=== PATIENT | female | born 1960 | race Caucasian/White ===

== ENCOUNTER 2017-01-13 14:36 | Observation (INO) | payer MEDICARE ==
[~2017-01-13] VITALS: Ht 160 cm; Wt 82.3 kg
--- NOTE | ~2017-01-13 | CN ---
PATIENT NAME:ANNIE PEÑA MEDICAL RECORD: [id number] : 56 LOCATION:D. D.2139 ADMIT DATE: 01/13/17 ACCOUNT: [id number] CONSULTING PHYSICIAN: PRETTY WEAVER MD REFERRING PHYSICIAN: ACE LIMA MD DATE OF CONSULTATION: 01/14/2017 ADMITTING DIAGNOSES: 1. Chest pain compatible with unstable angina. 2. Hypertension. 3. Family history of coronary artery disease. HISTORY OF PRESENT ILLNESS: Mrs. Peña presents with multiple episodes of typical anginal chest discomfort this week associated with diaphoresis, shortness of breath and nausea. The episodes have been escalating in severity. Troponin is normal. She has no history of coronary artery disease; however, she does have a family history of coronary artery disease. PHYSICAL EXAMINATION: GENERAL APPEARANCE: Well-nourished, well-developed, appears stated age. Level of distress, comfortable. PSYCHIATRIC: Mental status, alert, normal affect. Orientation, oriented to time, place and person. EYES: Lids and conjunctiva, noninjected. No discharge, no pallor. ENT: Lips, teeth, gums, normal dentition. Oropharynx, no cyanosis, no pallor. NECK: Carotid arteries, bilateral normal upstroke, no bruits, no thrills. JUGULAR VEINS: No jugular venous pressure or distention. CERVICAL LYMPH NODES: Nontender, nonenlarged. THYROID: Not enlarged. Nontender. No nodules. LUNGS: Respiratory effort, unlabored. CHEST: Normal curvature. No thoracic deformity. No chest wall tenderness. Percussion, resonant. Auscultation, clear. No wheezes, no rales, no rhonchi. CARDIOVASCULAR: Precordial exam, nondisplaced. No heaves or pericardial thrills. Rate and rhythm, regular. Heart sounds, normal S1, normal S2. No S3, no gallop, no rub. Systolic murmur, not heard. Diastolic murmur, not heard. EXTREMITIES: No cyanosis, no edema. Peripheral pulses, full and equal in all extremities, except as noted. No bruits appreciated. ABDOMEN: Soft, nondistended. Normal aorta. No bruit. Nontender. No masses. Liver, nontender, no hepatomegaly. Spleen, nontender, no splenomegaly. MUSCULOSKELETAL: No joint tenderness. No joint swelling. No erythema. NEUROLOGICAL: Normal gait, normal strength, normal tone. SKIN: Warm and dry. REVIEW OF SYSTEMS: The patient reports easy bruising but reports no swollen glands. The patient reports no fever, no night sweats, no significant weight gain, no significant weight loss. No significant exercise tolerance. The patient reports no dry eyes, no irritation, no vision change. Patient reports no difficulty hearing and no ear pain. Patient reports no frequent nose bleeds or nose and sinus problems. Patient reports on arm pain on exertion. No shortness of breath while lying down. No history of heart murmur. Patient reports no cough, no wheezing or coughing up blood. Patient reports no abdominal pain, no vomiting. Normal appetite. No diarrhea and not vomiting blood. No nausea and no constipation. Patient reports no incontinence. No difficulty urinating. No hematuria. No increased frequency. Patient reports no muscle aches. No weakness, no arthralgias, no back pain. No swelling of the CONSULT REPORT [id number] SMOKE,ANNIE CONSUELO extremities. Patient reports no abnormal mole, no jaundice, no rashes. Reports no loss of consciousness. No weakness and no numbness. No seizures, dizziness, or headaches. The patient reports no depression, no sleep disturbance, feeling safe in a relationship and no alcohol abuse. Patient reports on fatigue. Reports no runny nose or sinus pressure. No itching, no hives, and no frequent sneezing. OVERALL IMPRESSION: Unstable anginal symptomatology. We will proceed with coronary angiography. Further care depends upon findings of the angiography. TRANSINT:[id number] Voice Confirmation ID: [id number] DOCUMENT ID: [id number] PRETTY WEAVER MD CC: [id number] DICTATION DATE: 01/14/17953 INSTRUMENTATION AND CONTROLS DESIGNER: 01/14/17 1108 ADM IN [place] [id number] [place] [id number]
--- NOTE | ~2017-01-13 | HEMODYNAMI ---
PATIENT:ANNIE PEÑA MEDICAL RECORD: [id number] : 56 LOCATION:[facility] D.2139 ADMISSION DATE: 01/13/17 Generatedon:01/14/201712:39 Patient name: ANNIE PEÑA Patient #: [id number] SSN: [id number] : 1960 Date of study: 01/14/2017 Page: Of Hemodynamic Procedure Report Patient Data Patient Demographics Procedure consent was obtained First Name: ANNIE Gender: Female Last Name: MARIANA : 1960 [facility] Initial: CONSUELO Age: 56 year(s) Patient #: [id number] Race: SSN: [id number] Additional ID: [id number] Contact details Address: [address] [place] [address] State: [place] City: [facility] Zip code: [address] Past Medical History Allergies Allergen Reaction Date Comments Reported Other allergy 01/14/2017 Penicillins, Demerol, phenergan Admission Admission Data Admission Date: 01/13/2017 Admission Time: 20:16 Arrival Date: 01/13/2017 Arrival Time: 20:16 Admit Source: Other Insurance Payor: Medicare Room #: D.2139 Height (in.): 62.99 BSA: 1.85 (m2) Height (cm.): 160 BMI: 32.14 (kg/m2) Weight (lbs.): 181.38 Weight (kg.): 82.27 Lab Results Lab Result Date: 01/14/2017 Lab Result Time: 0:00 Biochemistry Name Units Result Min Max BUN mg/dl 10 --(-*--)-- 7 18 CK-MB ng/ml 0.1 --(*---)-- 0 3.6 Creatinine mg/dl 0.9 --(-*--)-- 0.6 1.3 Creatinine l 67 --(*---)-- 21 215 Kinase CBC Name Units Result Min Max Hemoglobin g/dl 14.9 --(-*--)-- 13.5 17.5 Procedure Procedure Types Cath Procedure Diagnostic Procedure [facility] w/Coronaries Miscellaneous Procedures Moderate Sedation up to 15 minutes Procedure Description Procedure Date Procedure Date: 01/14/2017 Procedure Start Time: 12:28 Procedure End Time: 12:36 Procedure Staff Name Function Paresh Wise MD Performing Physician Morenita Johnson RT Scrub Prosper Barnes RN Nurse Priya Oliveira RT Monitor Procedure Data Cath Procedure Fluoroscopy Diagnostic fluoroscopy Total fluoroscopy Time: 1.4 time: 1.4 min min Diagnostic fluoroscopy Total fluoroscopy dose: 333 dose: 333 mGy mGy Contrast Material Contrast Material Type Amount (ml) Isovue 300 40 Entry Location Entry Primary Successful Side Size Upsize Upsize Entry Closure Larry ccessful Closure Location (Fr) 1 (Fr) 2 (Fr) Remarks Device Remarks Radial Right 6 Fr Mechanical artery Short Compression Estimated blood loss: 5 ml Diagnostic catheters Device Type Used For End Catheter Placement Diagnostic Terumo Multi-vessel Optitorque 5Fr Levant 4.5 Angiography catheter Procedure Complications No complications Procedure Medications Medication Administration Route Dosage Oxygen NC 2 l/min Lidocaine 2% added to field 20 Heparin Flush Bag added to field 2 bags (1000units/500ml NS) 0.9% NaCl I.V. 100 ml/hr Radial Cocktail I.A. 1 syringe (Verapomil 2mg/Nitro 400mcg/Heparin 1500units) Versed I.V. 1 mg Fentanyl I.V. 50 mcg Versed I.V. 1 mg Fentanyl I.V. 50 mcg Hemodynamics Rest BSA: 1.85 (m2) HGB: 14.9 (g/dl) O2 Consumption: Estimated: 168.6 (ml/min) O2 Con sumption indexed: Estimated:91.14 (ml/min/m) Heart Rate: 59 (bpm) Pressure Samples Time Site Value (mmHg) Purpose Heart Use Rate(bpm) 12:33 LV 37/7,34 Snapshot 31 Snapshots Pre Cath Intra NCS Post Cath Vital Signs Time Heart Resp SPO2 NIBP Rhythm Pain Sedation Rate (ipm) (%) (mmHg) Status Level (bpm) 12:22:51 62 18 96 96/66(84) NSR 0 (11) 10(A) , No pain 12:26:53 65 15 95 103/70(85) NSR 0 (11) 10(A) , No pain 12:31:01 64 16 94 107/65(96) NSR 0 (11) 9(A) , No pain 12:35:07 81 16 94 115/69(98) NSR 0 (11) 9(A) , No pain 12:38:40 69 15 94 112/66(95) NSR 0 (11) 10(A) , No pain Medications Time Medication Route Dose Verified Delivered Reason Notes Effectiveness by by 12:23:25 Oxygen NC 2 l/min Paresh Buffie used for Frandy Barnes RN procedure 12:23:32 Lidocaine 2% added 20ml Pareshpita Yoder for local to vial Frandy Wise MD anesthetic field 12:23:40 Heparin Flush added 2 bags Paresh Yoder used for Bag to Frandy Wise MD procedure (1000units/500ml field NS) 12:23:52 0.9% NaCl I.V. 100 Pareshpita Cheng Per ml/hr Frandy Barnes RN physician 12:27:15 Versed I.V. 1 mg Paresh Cheng for sedation Frandy Barnes RN 12:27:22 Fentanyl I.V. 50 mcg Paresh Cheng for sedation Frandy Barnes RN 12:31:07 Radial Cocktail I.A. 1 Paresh Paresh for (Verapomil syringe Frandy Wise MD vasodilation 2mg/Nitro 400mcg/Heparin 1500units) 12:34:22 Versed I.V. 1 mg Pareshpita Garciaie for sedation Frandy Barnes RN 12:34:26 Fentanyl I.V. 50 mcg Paresh Cheng for sedation Frandy Barnes RN Procedure Log Time Note 10:13:28 Diagnostic Cath status Elective 10:13:32 Time tracking: Regular hours 10:13:37 Plan of Care:Hemodynamics will remain stable., Cardiac rhythm will remain stable., Comfort level will be maintained., Respiratory function will remain adequate., Patient/ family verbilizes understanding of procedure., Procedure tolerated without complication., Recovers from procedure without complications.. 10:13:47 H&P Date Dictated: 01/13/2017 Within 30 days and on chart.. 10:15:43 Lab Result : CK-MB 0.1 ng/ml 10:15:43 Lab Result : Creatinine Kinase 67 l 10:15:43 Lab Result : Hemoglobin 14.9 g/dl 10:15:43 Lab Result : BUN 10 mg/dl 10:15:43 Lab Result : Creatinine 0.9 mg/dl 10:15:57 Patient Height : 160 cm 10:16:03 Patient Weight : 82.27 kg 11:57:45 Prosper Barnes RN sent for patient. Start room use. 12:11:16 Patient received from Med II to CCL 2 Alert and oriented. Tansferred to table in Supine position. 12:11:17 Warm blankets applied, and devin hugger turned on for patient comfort. 12:11:17 Correct patient and procedure confirmed by team. 12:11:19 Signed procedure consent form obtained from patient. 12:11:20 ECG and BP/O2 sat monitors applied to patient. 12:21:47 Vital chart was started 12:21:48 Baseline sample Acquired. 12:21:59 Baseline sample Acquired. 12:22:07 Rhythm: sinus rhythm 12:22:09 Full Disclosure recording started 12:22:10 Pre-procedure instructions explained to patient. 12:22:11 Pre-op teaching completed and patient verbalized understanding. 12:22:12 Family in waiting room. 12:22:14 Patient NPO since Midnight. 12:23:25 Oxygen 2 l/min NC was administered by Prosper Barnes RN; used for procedure; 12:23:32 Lidocaine 2% 20ml vial added to field was administered by Paresh Wise MD; for local anesthetic; 12:23:34 Patient allergic to Other allergyPenicillins, Demerol, phenergan 12:23:36 Is patient on blood thinner?No 12:23:38 Patient diabetic? Yes. 12:23:39 If diabetic: On Metformin? No 12:23:40 Heparin Flush Bag (1000units/500ml NS) 2 bags added to field was administered by Paresh Wise MD; used for procedure; 12:23:46 Patient not . Patient is over age 55. 12:23:49 Previous problem with sedation/anesthesia? No ? 12:23:51 Snore? Yes 12:23:51 Sleep apnea? No 12:23:52 0.9% NaCl 100 ml/hr I.V. was administered by Prosper Barnes RN; Per physician; 12:23:53 Deviated septum? No 12:23:53 Opens mouth fully? Yes 12:23:54 Sticks out tongue? Yes 12:23:56 Airway obstruction? No ? 12:23:58 Dentures? No ? 12:24:02 Pre procedure: right dorsailis pedis pulse 1+ Palpable, but thready & weak; easily obliterated 12:24:04 Pre procedure: left dorsailis pedis pulse 1+ Palpable, but thready & weak; easily obliterated 12:24:07 Modified Uzair's test Radial < 7 seconds 12:24:08 Patient pain scale 0/10 ?. 12:24:15 IV patent on arrival in right hand with 0.9% NaCl at [facility]. 12:24:18 Lab results completed and on chart. 12:24:23 Right Radial area was prepped with chlora-prep and draped in sterile fashion 12:24:24 Alarms reviewed by R. N. 12:24:24 Sharps counted by scrub and verified by R.N. 12:24:25 Physician arrived 12:24:26 --------ALL STOP TIME OUT------ 12::27 Final Timeout: patient, procedure, and site verified with staff and physician. All members of the team are in agreement. 12:24:30 Right Radial site verified by team. 12:24:33 Physical assessment completed. ASA score P 2 - A patient with mild systemic disease as per Paresh Wise MD. 12:24:37 Sedation plan: IV Moderate Sedation Versed, Fentanyl 12:24:43 Use device set Radial Dx 12:24:43 Acist Syringe opened to sterile field. 12:24:44 Medline Cath Pack opened to sterile field. 12:24:44 Bag Decanter opened to sterile field. 12:24:52 Terumo 6Fr Slender Glidesheath opened to sterile field. 12:24:53 St Abad 260cm J .035 wire opened to sterile field. 12:24:53 Acist Hand Control opened to sterile field. 12:24:54 Acist Manifold opened to sterile field. 12:24:54 Tegaderm 4 x 4 opened to sterile field. 12:24:55 MBrace Wrist Support opened to sterile field. 12:26:53 Arrival Date: 01/13/2017 8:16:00 PM 12:27:15 Versed 1 mg I.V. was administered by Prosper Barnes RN; for sedation; 12::22 Fentanyl 50 mcg I.V. was administered by Prosper Barnes RN; for sedation; 12::04 Admit Source: Other 12::08 Insurance Payor : Medicare 12::14 Procedure started. 12::19 Local anesthetic to right radial artery with Lidocaine 2% by Paresh Wise MD.INITIAL ACCESS ONLY 12::29 A 6 Fr Short sheath was inserted into the Right Radial artery 12:30:08 A Diagnostic iZumi Bio Optitorque 5Fr Levant 4.5 catheter was advanced over the wire and used for Multi-vessel Angiography. 12:31:07 Radial Cocktail (Verapomil 2mg/Nitro 400mcg/Heparin 1500units) 1 syringe I.A. was administered by Paresh Wise MD; for vasodilation; 12:33:25 LV hemodynamics recorded. 12:33:26 LV gram done using HUTTON 12::28 Injector settings: Ml/sec: 5, Volume: 15, 12:33:33 EF : 60 % 12:33:49 LCA angiography performed. 12:33:51 Injector settings: Ml/sec: 3, Volume: 6, 12:34:22 Versed 1 mg I.V. was administered by Prosper Barnes RN; for sedation; 12:34:26 Fentanyl 50 mcg I.V. was administered by Prosper Barnes RN; for sedation; 12:34:31 RCA angiography performed. 12:34:33 Injector settings: Ml/sec: 3, Volume: 6, 12:34:54 Catheter removed. 12:35:15 Sheath removed intact; hemostasis achieved with Mechanical Compression to the Right Radial artery. 12:35:17 Procedure ended.(Physican Out) 12:35:43 Fluoroscopy time 01.40 minutes. 12:35:56 Fluoroscopy dose: 333 mGy 12:35:56 Flurop Dose total: 333 12:36:03 Contrast amount:Isovue 300 40ml. 12:36:04 Sharps counted by scrub and verified by R.N. 12:36:07 TR band inflated with 10cc of air. 12:36:09 Insertion/operative site no bleeding no hematoma. 12:36:13 Post right radial artery:stable 12:36:14 Post Procedure Pulses reassessed and unchanged 12:36:18 Post procedure rhythm: unchanged. 12:36:20 Estimated blood loss: 5 ml 12:36:21 Post procedure instruction explained to patient.Patient verbalizes understanding. 12:36:21 Patient needs reinforcement of post procedure teaching. 12:36:30 Procedure and supply charges have been captured, reviewed, submitted and are correct. 12:36:33 Procedure Complication : No complications 12:36:35 Vital chart was stopped 12:36:36 See physician's report for complete and final results. 12:36:38 Report given to [facility]. 12:36:40 Patient transfered to Med II with Stretcher. 12:36:42 Procedure ended. 12:36:42 Full Disclosure recording stopped 12:36:45 End room use (Document Last) 12:39:10 Terumo TR Band Standard opened to sterile field. Device Usage Item Name Manufacture Quantity Catalog Hospital Part Current Minimal Lot# / Number Charge Number Stock Stock Serial# Code Acist Acist 1 23556 [id number] 105946 485650 20 Syringe Medical Systems Inc Medline Cardinal 1 [id number] 551965 24480 879557 5 Cath Pack Health Bag Microtek 1 2001S 479470 98732 345623 5 DecConnesta [employer] Inc[employer] Terumo 6Fr Terumo 1 [id number] 267038 090018 892829 [address] Abad 1 694137 289560 333077 853220 30 260cm J .035 wire Acist Hand Acist 1 73002 334244 706586 160780 5 Control Medical Systems Inc Acist Acist 1 25994 393065 841188 245810 5 Manifold Medical Systems Inc Tegaderm 4 3M 1 1626W 311485 778317 762747 5 x 4 MBrace Advanced 1 140-0250-00 739178 76181 781018 5 Wrist Vascular Support Dynamics Diagnostic Terumo 1 66-3277 552406 864660 616333 5 Terumo Optitorque 5Fr Levant 4.5 catheter Terumo TR Terumo 1 [id number] 062067 796510 765325 40 Band Standard Signature Audit [place] Stage Time Signature Unsigned Intra-Procedure 01/14/2017 Morenita Johnson 12:39:35 PM RT(R) Signatures Monitor : Priya Oliveira Signature : RT Date : Time : [address] [place] [place] [address]
--- NOTE | ~2017-01-13 | OP ---
PATIENT NAME: ANNIE PEÑA MEDICAL RECORD: [id number] :56 LOCATION:D.M2 D.2139 ADMISSION DATE:01/13/17 SURGEON: PRETTY WEAVER MD DATE OF OPERATION: 01/14/2017 PROCEDURES: 1. Left heart catheterization. 2. Selective coronary angiography. 3. Left ventriculogram. INDICATION: Chest pain compatible with angina. PROCEDURE IN DETAIL: After informed consent was obtained and after detailed explanation of risks, benefits as well as alternative therapies, the patient elected to proceed with angiogram and heart catheterization. The right radial area was prepped and draped in normal sterile fashion. The right radial artery was cannulated via modified Seldinger technique with the placement of 6-Vietnamese sheath. All catheters exchanged through this sheath. FINDINGS: The left ventriculogram was performed in standard 30-degree HUTTON view reveals good cardiac wall motion throughout all segments. Overall ejection fraction estimated 60%. SELECTIVE CORONARY ANGIOGRAPHY: Left main, left anterior descending, left circumflex, and right coronary artery are all smooth-walled vessels with no angiographic evidence of coronary artery disease. OVERALL IMPRESSION: 1. No angiographic evidence of coronary artery disease. 2. Normal left heart pressures. 3. Normal left ventricular systolic function. 4. Chest pain is noncardiac in etiology. No other cardiac workup needs to be ascertained. TRANSINT:[id number] Voice Confirmation ID: [id number] DOCUMENT ID: [id number] PRETTY WEAVER MD CC: [id number] DICTATION DATE: 01/14/17 1238 POULTRY INSPECTOR: 01/14/17 1441 ADM IN [place] [id number] [place] [address]
[~2017-01-13 14:36] MED LIST: ADIPEX-P37.5 MG PO; AMRIX15 MG PO; CARAFATE1 G PO; CATAPRES0.1 MG PO; COLACE100 MG PO; CYMBALTA60 MG PO; ESTRACE1 MG PO; FARXIGA PO; FARXIGA10 MG PO; FLEXERIL10 MG PO; IBUPROFEN200 MG PO; LIDODERM 5 %1 PATCH TD; LOPRESSOR50 MG PO; NEURONTIN 300300 MG PO; NEURONTIN600 MG PO; NEURONTIN800 MG PO; NORCO 10/325 TA1 TA1 PO; OXYCONTIN15 MG PO; PERCOCET 10/3251 TA1 PO; ROBAXIN-750750 MG PO; SINGULAIR10 MG PO; TYLENOL #4 W/CO1 TAB PO; VANCOMYCIN H1 G/VIA1 IV
[2017-01-13 16:02] LABS: BASOPHILS 0.4 % (0-2); EOSINOPHILS 2.2 % (0-7); HEMATOCRIT 44.3 % (36.0-48.0); HEMOGLOBIN 14.9 g/dL (12-16); IMMATURE GRANULOCYTES 0.1 % (0-5); LYMPHOCYTES 43.5 % (15-50); MCH 29.4 pg (26.0-34.0); MCHC 33.6 g/dL (31.0-37.0); MCV 87.5 fL (80.0-100.0); MEAN PLATELET VOLUME 10.4 fL (7.4-10.4); MONOCYTES 7.2 % (2-11); NEUTROPHILS 46.6 % (40-80); PLATELET COUNT 226 10x3/uL (130-400); RBC 5.06 10x6/uL (4.00-5.40); RDW 12.5 % (11.5-14.5); WBC 9.2 10x3/uL (4.8-10.8)
[2017-01-13 16:35] LABS: ALKALINE PHOSPHATASE 84 U/L (46-116); ALT (SGPT) 44 U/L (10-68); BILIRUBIN - TOTAL 0.52 mg/dL (0.2-1.3); CALC OSMOLALITY 274 mosm/kg (275-300); CALCIUM 8.8 mg/dL (8.5-10.1); CARBON DIOXIDE 25.7 mmol/L (21.0-32.0); CHLORIDE - SERUM 102 mmol/L (98-107); CREATININE - SERUM 0.9 mg/dL (0.6-1.3); GLUCOSE 95 mg/dL (74-106); POTASSIUM - SERUM 4.2 mmol/L (3.5-5.1); PROTEIN - SERUM 7.9 g/dL (6.4-8.2); SODIUM 138 mmol/L (136-145); UREA NITROGEN 10 mg/dL (7-18); eGFR NON AFRICAN AMERICAN 68 mL/min (90-120)
[2017-01-13 16:47] LABS: CHOL - HDL RATIO 5.5 ratio (2.3-4.1); CHOLESTEROL, TOTAL 204 mg/dL (0-200); CKMB 0.1 U/L (0.0-3.6); CREATINE KINASE 67 UL (21-215); HDL CHOLESTEROL 37 mg/dL (32-96); LDL CHOLESTEROL 138 mg/dL (0-100); LDL-HDL RATIO 3.7 ratio (1.5-3.5); TRIGLYCERIDE 148 mg/dL (30-200)
[2017-01-13 16:51] LABS: TROPONIN-I < 0.017 ng/mL (0.000-0.060)
[2017-01-13 20:23] LABS: CKMB 0.1 U/L (0.0-3.6); CREATINE KINASE 64 UL (21-215)
[2017-01-13 20:29] LABS: TROPONIN-I < 0.017 ng/mL (0.000-0.060)
--- NOTE | 2017-01-13 22:38 | NUR ---
RECEIVED FROM ER, VIA WHEELCHAIR, TELEMTRY ON, IV-R. HAND-SL, ALERT & ORIENTATED, PT ASK ME TO CALL FOR NEURONTIN AND TYLENOL 4, BED IS LOW, SRX2, CALL LIGHT IN REACH, WILL CONTINUE TO MONITOR
[2017-01-13] MEDS ORDERED: NEURONTIN 300300 MG PO (22:43)
[2017-01-13] MEDS ORDERED: NORMODYNE / TR100 MG PO (22:44)
--- NOTE | 2017-01-14 01:00 | NUR ---
RESTING IN BED WITH NO DISTRESS. RESPS EVEN/NONLABORED. CPOC.
[2017-01-14 01:38] LABS: CKMB 0.1 U/L (0.0-3.6); CREATINE KINASE 60 UL (21-215)
[2017-01-14 01:41] LABS: TROPONIN-I < 0.017 ng/mL (0.000-0.060)
[2017-01-14 04:00] VITALS: BP 115/80
[2017-01-14 04:14] VITALS: BP 122/70; Ht 160 cm; Wt 82.3 kg
--- NOTE | 2017-01-14 04:59 | NUR ---
PT SLEEPING, BED IS LOW, SRX2, CALL LIGHT IN REACH, WILL CONTINUE TO MONITOR
[2017-01-14 08:11] LABS: CKMB 0.1 U/L (0.0-3.6); CREATINE KINASE 63 UL (21-215)
[2017-01-14 08:14] LABS: TROPONIN-I < 0.017 ng/mL (0.000-0.060)
[2017-01-14 08:18] VITALS: BP 117/78
--- NOTE | 2017-01-14 10:03 | NUR ---
PATIENT PREOPTED PER AT THIS TIME
--- NOTE | 2017-01-14 12:03 | NUR ---
PATIENT LEAVING UNIT VIA BED FOR MEDICAL INSURANCE BILLER AT THIS TIME. NO DISTRESS UPON LEAVING UNIT.
[2017-01-14 12:23] VITALS: BP 122/77
--- NOTE | 2017-01-14 13:09 | NUR ---
PATIENT RETURNED TO UNIT AT 1300. TR BAND TO RIGHT WRIST. SYRINGE IN HAND. IV FLUIDS INFUSING ORDERED. BP 108/68. NO DISTRESS. PATIENT SITTING UP EATING AT THIS TIME. PATIENTS FAMILY IS AT BEDSIDE.
--- NOTE | 2017-01-14 14:50 | NUR ---
7ML PRESSURE RELEASED FROM RIGHT TR BAND. NO BLEEDING AT SIDE. RESTING IN SLIGHT PRONED POSITION. IV FLUIDS INFUSING ORDERED.
--- NOTE | 2017-01-14 15:22 | NUR ---
TR BAND REMOVED AT THIS TIME. NO BLEEDING FROM SITE. GAUZE APPLIED AND SECURED WITH TEGADERM DRESSING. RESTING WITH EYES CLOSED, EASILY AROUSED. NO DISTRESS.
[2017-01-14 17:06] VITALS: BP 118/66
--- NOTE | 2017-01-14 17:59 | NUR ---
1740 20 GAUGE IV REMOVED FROM RIGHT HAND. CATHETER TIP INTACT. NO BLEEDING FROM SITE. 2X2 GAUZE APPLIED AND SECURED WITH TAPE. 1750 DISCHARGE INSTRUCTIONS PROVIDED TO PATIENT. VERBALIZED HER UNDERSTANDING OF ALL INSTRUCTIONS PROVIDED. 1800 PATIENT LEFT UNIT VIA WHEELCHAIR WITH ALL PERSONAL BELONGINGS. PATIENT DISCHARGED TO HOME VIA PRIVATE CAR WITH HER SISTER. PATIENT IN NO DISTRESS UPON LEAVING UNIT AND THANKED THIS REINFORCER FOR ALL CARES RENDERED.
== END 2017-01-14 18:05 | disposition home or self-care (01) ==
LOC: D.ER 14:36 → D.M2 20:16 → OBSVTIME 20:16 → D.M2 01-14 18:05
PROVIDERS: Family Medicine; ADMIT Family Medicine
DX: R07.89 Other chest pain (principal); E11.65 Type 2 diabetes mellitus with hyperglycemia; E11.40 Type 2 diabetes mellitus with diabetic neuropathy, unspecified; I10 Essential (primary) hypertension; F32.9 Major depressive disorder, single episode, unspecified; M54.9 Dorsalgia, unspecified; G89.29 Other chronic pain

== ENCOUNTER → 2017-02-05 16:30 | Outpatient (CLI) | payer MEDICARE ==
[2017-01-14 04:14] VITALS: BMI 32.1
[~2017-02-05 16:30] MED LIST changes: +NORMODYNE / TR100 MG PO
[2017-02-05 17:38] LABS: CALCIUM 9.5 mg/dL (8.5-10.1); CREATININE - SERUM 0.9 mg/dL (0.6-1.3)
== END | disposition home or self-care (01) ==
LOC: D.CT 16:30
PROVIDERS: Emergency Medicine
DX: D35.01 Benign neoplasm of right adrenal gland (principal)

== ENCOUNTER 2017-03-04 15:54 | Emergency (ER) | payer MEDICARE ==
[2017-01-14 04:14] VITALS: BMI 32.1
[2017-03-04 17:46] LABS: APPEARANCE CLEAR (CLEAR); BILIRUBIN NEGATIVE (NEGATIVE); COLOR YELLOW (YELLOW); GLUCOSE NEGATIVE (NEGATIVE); KETONE NEGATIVE (NEGATIVE); NITRITE NEGATIVE (NEGATIVE); PROTEIN NEGATIVE (NEGATIVE); SPECIFIC GRAVITY 1.015 (1.005-1.020); UROBILINOGEN NORMAL (NORMAL)
[2017-03-04 17:55] LABS: BASOPHILS 0.3 % (0-2); EOSINOPHILS 2.1 % (0-7); HEMOGLOBIN 15.8 g/dL (12-16); IMMATURE GRANULOCYTES 0.2 % (0-5); LYMPHOCYTES 35.1 % (15-50); MCH 29.7 pg (26.0-34.0); MCHC 34.3 g/dL (31.0-37.0); MCV 86.5 fL (80.0-100.0); MEAN PLATELET VOLUME 9.5 fL (7.4-10.4); MONOCYTES 6.5 % (2-11); NEUTROPHILS 55.8 % (40-80); PLATELET COUNT 235 10x3/uL (130-400); RBC 5.32 10x6/uL (4.00-5.40); RDW 12.9 % (11.5-14.5); WBC 9.9 10x3/uL (4.8-10.8)
[2017-03-04 18:27] LABS: AMYLASE - SERUM 61 U/L (25-115); LIPASE 179 U/L (73-393)
[2017-06-02] MEDS ORDERED: COLACE100 MG PO (12:08)
[2017-06-02] MEDS ORDERED: GLYCOLAX527 GM PO (12:08)
[2017-06-02] MEDS ORDERED: LEVAQUIN500 MG PO (12:09)
== END 2017-03-04 20:30 | disposition home or self-care (01) ==
LOC: D.ER 15:54
PROVIDERS: Emergency Medicine; Nurse Practitioner Family
DX: K59.00 Constipation, unspecified (principal); M62.838 Other muscle spasm; E11.9 Type 2 diabetes mellitus without complications

== ENCOUNTER → 2017-03-17 14:41 | Outpatient (CLI) | payer MEDICARE ==
[2017-01-14 04:14] VITALS: BMI 32.1
[~2017-03-17 14:41] MED LIST changes: +E.E.S. 200200 MG/5 M PO; +GLYCOLAX527 GM PO; +HYDROCODONE-APA1 TAB PO; +LEVAQUIN500 MG PO; +MORPHINE SULFAT15 M4 PO; +NEXIUM40 MG; +REGLAN10 MG PO
== END | disposition home or self-care (01) ==
LOC: D.CT 14:30
DX: R42 Dizziness and giddiness (principal); R51 Headache; R41.82 Altered mental status, unspecified

== ENCOUNTER 2017-03-28 16:45 | Emergency (ER) | payer MEDICARE ==
[2017-01-14 04:14] VITALS: BMI 32.1
[~2017-03-28 16:45] MED LIST changes: -E.E.S. 200200 MG/5 M PO; -GLYCOLAX527 GM PO; -HYDROCODONE-APA1 TAB PO; -LEVAQUIN500 MG PO; -MORPHINE SULFAT15 M4 PO; -NEXIUM40 MG; -REGLAN10 MG PO
[2017-03-28 17:51] LABS: BASOPHILS 0.5 % (0-2); EOSINOPHILS 2.3 % (0-7); HEMATOCRIT 48.1 % (36.0-48.0); HEMOGLOBIN 16.2 g/dL (12-16); IMMATURE GRANULOCYTES 0.2 % (0-5); MCH 29.6 pg (26.0-34.0); MCHC 33.7 g/dL (31.0-37.0); MCV 87.9 fL (80.0-100.0); MEAN PLATELET VOLUME 9.7 fL (7.4-10.4); MONOCYTES 8.3 % (2-11); NEUTROPHILS 48.7 % (40-80); PLATELET COUNT 259 10x3/uL (130-400); RBC 5.47 10x6/uL (4.00-5.40); RDW 12.9 % (11.5-14.5); WBC 10.3 10x3/uL (4.8-10.8)
[2017-03-28 18:01] LABS: ANION GAP 13.3 mmol/L (8-16); BILIRUBIN - TOTAL 0.29 mg/dL (0.2-1.3); CALCIUM 9.4 mg/dL (8.5-10.1); CARBON DIOXIDE 27.7 mmol/L (21.0-32.0); CREATININE - SERUM 0.9 mg/dL (0.6-1.3); PROTEIN - SERUM 8.8 g/dL (6.4-8.2)
[2017-03-28 19:08] LABS: APPEARANCE HAZY (CLEAR); BILIRUBIN NEGATIVE (NEGATIVE); COLOR YELLOW (YELLOW); GLUCOSE 1000 mg/dL (NEGATIVE); KETONE NEGATIVE (NEGATIVE); NITRITE NEGATIVE (NEGATIVE); PROTEIN NEGATIVE (NEGATIVE); UROBILINOGEN NORMAL (NORMAL)
[2017-03-28 19:10] LABS: BACTERIA MODERATE /hpf (NONE SEEN); RED CELLS - URINE 0-5 /hpf (0-5); YEAST OCC /hpf (NONE SEEN)
[2017-06-02] MEDS ORDERED: COLACE100 MG PO (12:08)
[2017-06-02] MEDS ORDERED: GLYCOLAX527 GM PO (12:08)
[2017-06-02] MEDS ORDERED: LEVAQUIN500 MG PO (12:09)
== END 2017-03-28 21:23 | disposition home or self-care (01) ==
LOC: D.ER 16:45
PROVIDERS: Emergency Medicine
DX: R10.9 Unspecified abdominal pain (principal); E11.9 Type 2 diabetes mellitus without complications; N39.0 Urinary tract infection, site not specified

== ENCOUNTER → 2017-04-01 14:05 | Outpatient (CLI) | payer MEDICARE ==
[2017-01-14 04:14] VITALS: BMI 32.1
[~2017-04-01 14:05] MED LIST changes: +E.E.S. 200200 MG/5 M PO; +GLYCOLAX527 GM PO; +HYDROCODONE-APA1 TAB PO; +LEVAQUIN500 MG PO; +MORPHINE SULFAT15 M4 PO; +NEXIUM40 MG; +REGLAN10 MG PO
== END | disposition home or self-care (01) ==
LOC: D.MRI 14:05
DX: N28.9 Disorder of kidney and ureter, unspecified (principal)

== ENCOUNTER → 2017-04-04 14:01 | Outpatient (CLI) | payer MEDICARE ==
[2017-01-14 04:14] VITALS: BMI 32.1
== END | disposition home or self-care (01) ==
LOC: D.NM 14:01
DX: R13.10 Dysphagia, unspecified (principal)

== ENCOUNTER 2017-04-24 17:45 | Inpatient (IN) | payer MEDICARE ==
[~2017-04-24] VITALS: Ht 157.5 cm; Wt 83.9 kg
[~2017-04-24 17:45] MED LIST changes: -E.E.S. 200200 MG/5 M PO; -GLYCOLAX527 GM PO; -HYDROCODONE-APA1 TAB PO; -LEVAQUIN500 MG PO; -MORPHINE SULFAT15 M4 PO; -NEXIUM40 MG; -REGLAN10 MG PO
--- NOTE | 2017-04-24 18:11 | NUR ---
PATIENT TO ROOM AT THIS TIME. NO COMPLAINTS. SITTING UP TALKING ON PHONE. CALL LIGHT WITHIN REACH.
[2017-04-24] MEDS ORDERED: NEXIUM40 MG (18:19)
[2017-04-24] MEDS ORDERED: REGLAN10 MG PO (18:20)
[2017-04-24 19:18] LABS: BASOPHILS 0.3 % (0-2); EOSINOPHILS 3.2 % (0-7); HEMATOCRIT 41.5 % (36.0-48.0); HEMOGLOBIN 14.1 g/dL (12-16); IMMATURE GRANULOCYTES 0.1 % (0-5); MCH 29.5 pg (26.0-34.0); MCV 86.8 fL (80.0-100.0); MEAN PLATELET VOLUME 9.7 fL (7.4-10.4); MONOCYTES 9.6 % (2-11); NEUTROPHILS 40.8 % (40-80); PLATELET COUNT 225 10x3/uL (130-400); RBC 4.78 10x6/uL (4.00-5.40); RDW 12.8 % (11.5-14.5); WBC 9.2 10x3/uL (4.8-10.8)
--- NOTE | 2017-04-24 19:25 | NUR ---
PT WENT DOWN FOR CT VIA WHEELCHAIR AT THIS TIME.
[2017-04-24 19:32] LABS: ALBUMIN 3.7 g/dL (3.4-5.0); ALKALINE PHOSPHATASE 80 U/L (46-116); ALT (SGPT) 46 U/L (10-68); AMYLASE - SERUM 60 U/L (25-115); CALC OSMOLALITY 270 mosm/kg (275-300); CALCIUM 8.7 mg/dL (8.5-10.1); CARBON DIOXIDE 25.8 mmol/L (21.0-32.0); CHLORIDE - SERUM 102 mmol/L (98-107); CREATININE - SERUM 0.8 mg/dL (0.6-1.3); GLUCOSE 142 mg/dL (74-106); LIPASE 164 U/L (73-393); POTASSIUM - SERUM 4.1 mmol/L (3.5-5.1); PROTEIN - SERUM 7.7 g/dL (6.4-8.2); SODIUM 135 mmol/L (136-145); UREA NITROGEN 9 mg/dL (7-18); eGFR NON AFRICAN AMERICAN 78 mL/min (90-120)
--- NOTE | 2017-04-24 20:10 | NUR ---
SPOKE WITH RADHA. PT C/O OF PAIN AND ALL THAT WAS ORDERED IS PO TYLENOL, PT IS NPO. NEW ORDERS GIVEN FOR PAIN, NAUSEA AND HIGH BP. IV STARTED IN CT 20G RIGHT HAND. CALL LIGHT IN REACH, WILL CONTINUE TO MONITOR.
[2017-04-24 20:42] VITALS: BP 122/87
[2017-04-24 20:50] VITALS: BP 125/75; BMI 33.9
--- NOTE | 2017-04-24 21:24 | NUR ---
PRN DILAUDID ADMINISTERED AT THIS TIME FOR PAIN. CALL LIGHT IN REACH, WILL CONTINUE WITH PLAN OF CARE.
--- NOTE | 2017-04-24 23:32 | NUR ---
BS 104. NO COVERAGE NEEDED AT THIS TIME PER SS.
[2017-04-25] VITALS: BP 114/63
--- NOTE | 2017-04-25 02:44 | NUR ---
PRN DILAUDID ADMINISTERED AT THIS TIME FOR PAIN OF THE ABDOMEN. HEAT PACK PROVIDED TO PT FOR PAIN RELIEF. CALL LIGHT IN REACH, WILL CONTINUE WITH PLAN OF CARE.
[2017-04-25 04:00] VITALS: BP 121/68
--- NOTE | 2017-04-25 06:27 | NUR ---
BS 112. NO COVERAGE NEEDED PER SS.
--- NOTE | 2017-04-25 07:48 | NUR ---
AWAKE AND ALERT. ORIENTED X3. C/O ABDOMINAL PAIN AT THIS TIME. WILL GIVE PRN WHEN AVAILABLE. LUNGS ARE CLEAR BILATERALLY, NO COUGH NOTED. SKIN IS INTACT WITHOUT REDNESS. IV TO LEFT HAND IS PATENT WITHOUT REDNESS AT INSERTION SITE. DENIES NEEDS.
--- NOTE | 2017-04-25 08:35 | NUR ---
CURLED UP IN POSITION CRYING IN PAIN. GIVEN 0.5 DILAUDID SLOW IVP FOR SAME. ALSO PUT WARM MOIST HEAT TO AREA. WILL MONITOR.
[2017-04-25 08:55] VITALS: BP 134/75
--- NOTE | 2017-04-25 09:30 | NUR ---
RESTING QUIETLY WITH EYES CLOSED. NO NEEDS ASSESSED.
[2017-04-25 10:03] VITALS: BMI 33.8
[2017-04-25 10:06] LABS: HEMOGLOBIN 13.7 g/dL (12-16); LYMPHOCYTES 43.2 % (15-50); MCH 29.1 pg (26.0-34.0); MCHC 34.3 g/dL (31.0-37.0); MCV 84.9 fL (80.0-100.0); MEAN PLATELET VOLUME 8.9 fL (7.4-10.4); PLATELET COUNT 209 10x3/uL (130-400); RBC 4.71 10x6/uL (4.00-5.40); RDW 12.4 % (11.5-14.5); WBC 6.9 10x3/uL (4.8-10.8)
[2017-04-25 10:23] LABS: ALBUMIN 3.3 g/dL (3.4-5.0); ALKALINE PHOSPHATASE 65 U/L (46-116); ALT (SGPT) 45 U/L (10-68); BILIRUBIN - TOTAL 0.46 mg/dL (0.2-1.3); CALC OSMOLALITY 276 mosm/kg (275-300); CALCIUM 8.2 mg/dL (8.5-10.1); CARBON DIOXIDE 26.7 mmol/L (21.0-32.0); CHLORIDE - SERUM 104 mmol/L (98-107); CREATININE - SERUM 0.8 mg/dL (0.6-1.3); GLUCOSE 121 mg/dL (74-106); POTASSIUM - SERUM 4.2 mmol/L (3.5-5.1); PROTEIN - SERUM 6.9 g/dL (6.4-8.2); SODIUM 139 mmol/L (136-145); UREA NITROGEN 7 mg/dL (7-18); eGFR NON AFRICAN AMERICAN 78 mL/min (90-120)
--- NOTE | 2017-04-25 11:29 | NUR ---
Patient Name: ANNIE PEÑA Admission Status: Elective Accout number: [id number] Admission Date: 04-24-2017 : 1960 Admission Diagnosis:UNSPECIFIED ABDOMINAL PAIN Attending: DOMINIC, Current LOS: 1 Anticipated DC Date: Planned Disposition: Home Primary Insurance: MEDICARE A & B Discharge Planning Comments: CM met with patient to assess discharge planning needs. Patient lives home alone independently and that is where she plans to return at discharge. Patient stated that either her friend or her child will be the one to take her home. She is suppose to get a CPAP machine this week, but has not been delivered yet. She does not have any stairs in her home and stated that it is safe to return to. CM will continue to follow and assist with discharge planning needs. PCP: [facility] Worker: Ana Leo * Is the patient Alert and Oriented? Yes 0 * How many steps to enter\exit or inside your home? 0 0 * PCP Zachary 0 * [facility] [address] 0 * Preadmission Environment Home Alone 0 * ADLs Independent 0 * Equipment CPAP 0 * Other Equipment CPAP coming 0 * Community resources currently utilized None 0 * Additional services required to return to the preadmission environment? No 0 * Can the patient safely return to the preadmission environment? Yes 0 * Has this patient been hospitalized within the prior 30 days at any hospital? No 0 Grand Total: 0
--- NOTE | 2017-04-25 11:34 | NUR ---
RESTING QUIETLY AT THIS TIEM.
[2017-04-25 13:25] VITALS: BP 163/76
[2017-04-25 16:46] VITALS: BP 144/85
[2017-04-25 20:00] VITALS: BP 130/75
--- NOTE | 2017-04-25 20:30 | NUR ---
AWAKE,ALERT. WATCHING TV WITHOUT COMPLAINTS. IV INFUSING TO RIGHT HAND WIHTOUT REDNESS OR EDEMA NOTED. LOPEZ. CL IN REACH
--- NOTE | 2017-04-26 01:56 | NUR ---
EYES CLOSED RESP EVEN AND UNLABROED. NO DISTRESS NOTED. CL IN REACH
--- NOTE | 2017-04-26 02:02 | NUR ---
PATIENT IS RESTING QUIETLY WITH EYES CLOSED, NO SIGNS OF DISTRESS NOTED. BED RIALS UP X'S 2.
[2017-04-26 04:00] VITALS: BP 130/72
[2017-04-26 04:51] LABS: BASOPHILS 0.3 % (0-2); EOSINOPHILS 3.2 % (0-7); HEMOGLOBIN 13.5 g/dL (12-16); IMMATURE GRANULOCYTES 0.1 % (0-5); LYMPHOCYTES 39.2 % (15-50); MCH 29.4 pg (26.0-34.0); MCHC 33.8 g/dL (31.0-37.0); MEAN PLATELET VOLUME 9.7 fL (7.4-10.4); MONOCYTES 10.7 % (2-11); NEUTROPHILS 46.5 % (40-80); PLATELET COUNT 198 10x3/uL (130-400); RBC 4.59 10x6/uL (4.00-5.40); RDW 12.7 % (11.5-14.5); WBC 6.9 10x3/uL (4.8-10.8)
[2017-04-26 04:53] LABS: MCV 87.1 fL (80.0-100.0)
[2017-04-26 05:07] LABS: ALBUMIN 3.3 g/dL (3.4-5.0); ALKALINE PHOSPHATASE 66 U/L (46-116); ALT (SGPT) 41 U/L (10-68); BILIRUBIN - TOTAL 0.48 mg/dL (0.2-1.3); CALC OSMOLALITY 277 mosm/kg (275-300); CALCIUM 8.2 mg/dL (8.5-10.1); CARBON DIOXIDE 28.1 mmol/L (21.0-32.0); CHLORIDE - SERUM 105 mmol/L (98-107); CREATININE - SERUM 0.8 mg/dL (0.6-1.3); GLUCOSE 123 mg/dL (74-106); POTASSIUM - SERUM 4.1 mmol/L (3.5-5.1); PROTEIN - SERUM 7.1 g/dL (6.4-8.2); SODIUM 140 mmol/L (136-145); UREA NITROGEN 8 mg/dL (7-18); eGFR NON AFRICAN AMERICAN 78 mL/min (90-120)
--- NOTE | 2017-04-26 07:30 | NUR ---
AWAKE AND ALERT. ORIENTED X3. NO C/O AT THIS TIME. REPORTS ABDOMINAL PAIN MORE CONTROLLED WITH USE OF TORADOL WITH DILAUDID. LUNGS ARE CLEAR BILATERALLY, NO COUGH NOTED. SKIN IS INTACT WITHOUT REDNESS. IV TO RIGHT HAND IS PATENT WITHOUT REDNESS AT ISNERTION SITE. DENIES NEEDS.
--- NOTE | 2017-04-26 08:30 | NUR ---
ATE MOST OF BREAKFAST. HAD SMALL AMOUNT OF DIARRHEA STOOL. WILL MONITOR.
[2017-04-26 09:13] VITALS: BP 115/55
--- NOTE | 2017-04-26 09:29 | NUR ---
HAD ANOTHER EPISODE OF DIARRHEA AT THIS TIME. SKIN CARE PER SELF. WILL CONTINUE TO MONITOR.
[2017-04-26 13:16] VITALS: BP 118/58
[2017-04-26 15:53] VITALS: BP 136/79
--- NOTE | 2017-04-26 18:08 | NUR ---
C/O INCREASED PAIN AFTER EATING. REQUESTED AND GIVEN 0.5 MG DILAUDID SLOW IVP FOR SAME. WILL MONITOR.
[2017-04-26 20:56] VITALS: BP 122/77
[2017-04-27] VITALS (7 sets, daily range): BP systolic 126–148; BP diastolic 70–89
[2017-04-27 04:46] LABS: BASOPHILS 0.3 % (0-2); EOSINOPHILS 2.6 % (0-7); HEMATOCRIT 40.9 % (36.0-48.0); HEMOGLOBIN 13.7 g/dL (12-16); IMMATURE GRANULOCYTES 0.1 % (0-5); LYMPHOCYTES 45.3 % (15-50); MCH 29.3 pg (26.0-34.0); MCHC 33.5 g/dL (31.0-37.0); MCV 87.6 fL (80.0-100.0); MONOCYTES 9.6 % (2-11); NEUTROPHILS 42.1 % (40-80); PLATELET COUNT 213 10x3/uL (130-400); RBC 4.67 10x6/uL (4.00-5.40); RDW 12.7 % (11.5-14.5); WBC 7.8 10x3/uL (4.8-10.8)
[2017-04-27 05:18] LABS: ALBUMIN 3.2 g/dL (3.4-5.0); ALKALINE PHOSPHATASE 67 U/L (46-116); ALT (SGPT) 43 U/L (10-68); CALC OSMOLALITY 277 mosm/kg (275-300); CALCIUM 8.3 mg/dL (8.5-10.1); CARBON DIOXIDE 28.5 mmol/L (21.0-32.0); CHLORIDE - SERUM 106 mmol/L (98-107); CREATININE - SERUM 0.7 mg/dL (0.6-1.3); GLUCOSE 106 mg/dL (74-106); POTASSIUM - SERUM 3.8 mmol/L (3.5-5.1); PROTEIN - SERUM 6.9 g/dL (6.4-8.2); SODIUM 141 mmol/L (136-145); eGFR NON AFRICAN AMERICAN > 90 mL/min (90-120)
[2017-04-27 05:22] LABS: UREA NITROGEN 5 mg/dL (7-18)
--- NOTE | 2017-04-27 07:30 | NUR ---
AWAKE AND ALERT. ORIENTED X3. NO C/O AT THIS TIME. LUNGS ARE CLEAR BILATERALLY, NO COUGH NOTED. SKIN IS INTACT WITHOUT REDNESS. IV TO RIGHT HAND IS PATENT WITHOUT REDNESS AT INSERTION SITE. DENIES NEEDS.
--- NOTE | 2017-04-27 08:25 | NUR ---
OFF UNIT VIA FOR PROCEDURE.
--- NOTE | 2017-04-27 09:00 | NUR ---
RETURNED FROM PROCEDURE.
--- NOTE | 2017-04-27 10:36 | NUR ---
PT. 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 UPON REVIEWING THE TEACHER ASSISTANT IMAGES, DR. BARRIOS REQUESTED THAT THE EXAM BE POST PONED AND A PREP BE GIVEN TO CLEAN OUT RESIDUAL CONTRAST FROM CT SCAN. CATINA RT(R) 04/27/17 @ [id number]
--- NOTE | 2017-04-27 18:31 | NUR ---
REQUESTED AND GIVEN 0.5 MG DILAUDID SLOW IVP FOR C/O ABDOMINAL PAIN LEVEL 8. WILL MONITOR. HAS HAD 3 WATERY STOOLS SINCE GIVEN MAG AND DULCOLAX. WILL CONTINUE TO MONITOR.
--- NOTE | 2017-04-27 19:30 | NUR ---
RECIEVED SHIFT REPORT. PT IS LYING IN BED. ALERT AND ORIENTED AND ABLE TO VERBALIZE NEEDS. IV IS PATENT AND FLUIDS ARE RUNNING PER ORDER. PT IS AMBULATORY BUT WAS INSTRUCTED TO CALL FOR ANY ASSISTANCE NEEDED. PT STATES PAIN IS 5/10. SCD'S OFF PER PT REQUEST AT THIS TIME. NO NEEDS ARE VERBALIZED AT THIS TIME. WILL CONTINUE TO MONITOR. SIDE RAILS ARE UP X 2. BED IS IN LOWEST POSITION. CALL LIGHT IS WITHIN REACH.
--- NOTE | 2017-04-27 20:17 | NUR ---
SHIFT ASSESSMENT COMPLETED. NIGHT MEDS GIVEN WITH NO PROBLEMS. PT RECIEVED NO INSULIN PER SLIDING SCALE FOR IUNX=374. NO NEEDS ARE VOICED. WILL MONITOR. SIDE RAILS X 2. BED LOW. CALL LIGHT IN REACH.
[2017-04-28 03:59] VITALS: BP 146/92
[2017-04-28 04:44] LABS: BASOPHILS 0.2 % (0-2); EOSINOPHILS 3.1 % (0-7); HEMATOCRIT 39.9 % (36.0-48.0); HEMOGLOBIN 13.5 g/dL (12-16); IMMATURE GRANULOCYTES 0.1 % (0-5); LYMPHOCYTES 38.3 % (15-50); MCH 29.2 pg (26.0-34.0); MCHC 33.8 g/dL (31.0-37.0); MCV 86.4 fL (80.0-100.0); MEAN PLATELET VOLUME 9.5 fL (7.4-10.4); MONOCYTES 8.7 % (2-11); NEUTROPHILS 49.6 % (40-80); PLATELET COUNT 205 10x3/uL (130-400); RBC 4.62 10x6/uL (4.00-5.40); RDW 12.7 % (11.5-14.5); WBC 8.4 10x3/uL (4.8-10.8)
[2017-04-28 05:00] LABS: ALBUMIN 3.3 g/dL (3.4-5.0); ALKALINE PHOSPHATASE 65 U/L (46-116); ALT (SGPT) 44 U/L (10-68); CALC OSMOLALITY 276 mosm/kg (275-300); CALCIUM 8.3 mg/dL (8.5-10.1); CARBON DIOXIDE 26.6 mmol/L (21.0-32.0); CHLORIDE - SERUM 107 mmol/L (98-107); CREATININE - SERUM 0.7 mg/dL (0.6-1.3); GLUCOSE 110 mg/dL (74-106); POTASSIUM - SERUM 3.6 mmol/L (3.5-5.1); PROTEIN - SERUM 6.8 g/dL (6.4-8.2); SODIUM 140 mmol/L (136-145); UREA NITROGEN 5 mg/dL (7-18); eGFR NON AFRICAN AMERICAN > 90 mL/min (90-120)
--- NOTE | 2017-04-28 07:53 | NUR ---
PATIENT UP TO BATHROOM. UPON RETURNING, RESTING QUIETLY IN BED. PATIENT REPORTS LOOSE STOOLS LAST NIGHT "AROUND 10PM". TENDERNESS NOTED TO UPPER ABDOMEN. ALERT AND ORIENTED X3. VSS. NO OTHER COMPLAINTS AT THIS TIME. WILL CONTINUE TO MONITOR.
[2017-04-28 08:52] VITALS: BP 124/77
--- NOTE | 2017-04-28 09:23 | NUR ---
PT SEEN. RETURNED FROM XRAY AND REQUESTING PAIN MED BUT REFUSING PAIN PILL-TOO EARLY FOR PILL. DILAUDID IVP GIVEN WITH PROTONIX ORDERED. STATES PAIN IS 7/10 TO RLQ-CALL LIGHT IN REACH. VISITOR AT BEDSIDE.
--- NOTE | 2017-04-28 09:49 | NUR ---
CALL RECIEVED FROM X-RAY STATING PATIENT WAS IN PAIN. PO PRN MEDICATION WAS TAKEN TO PATIENT IN X-RAY AND WAS REFUSED. PATIENT RETURNED TO HER ROOM AND PRN IV MEDICATION WAS GIVEN BY RN. ORDER FOR CONSENTS RECIEVED. PATIENT EXPRESSED UNDERSTANDING. CONSENTS SIGNED AND PLACED ON CHART.
--- NOTE | 2017-04-28 12:13 | NUR ---
NUTRITION F/U CHART REVIEWED, CLEAR LIQUID DIET>NPO AFTER MN FOR PROCEDURE. WILL PROVIDE DIET WHEN RESUMED. ASSIST WITH NUTRITION SUPPORT IF NEEDED. RD FOLLOWING
[2017-04-28 12:44] VITALS: BP 137/80
--- NOTE | 2017-04-28 14:30 | NUR ---
PATIENT LEFT FOR MAMMOGRAM. NO COMPLAINTS AT THIS TIME.
--- NOTE | 2017-04-28 19:25 | NUR ---
RECIEVED SHIFT REPORT. PT IS LYING IN BED. ALERT AND ORIENTED AND ABLE TO VERBALIZE NEEDS. IV IS PATENT AND FLUIDS ARE RUNNING PER ORDER. PT IS AMBULATORY BUT WAS INSTRUCTED TO CALL FOR ANY ASSISTANCE NEEDED. SCD'S OFF PER PT REQUEST. PT STATES PAIN IS 4/10. NO NEEDS ARE VERBALIZED AT THIS TIME. WILL CONTINUE TO MONITOR. SIDE RAILS ARE UP X 2. BED IS IN LOWEST POSITION. CALL LIGHT IS WITHIN REACH.
[2017-04-28 20:00] VITALS: BP 146/80
--- NOTE | 2017-04-28 21:14 | NUR ---
SHIFT ASSESSMENT COMPLETED. NIGHT MEDS GIVEN WITH NO PROBLEMS. PT RECIEVED NO INSULIN PER SLIDING SCALE FOR FSBS=88. PT C/O PAIN 12/02. ADMINISTERED PRESCRIBED PRN TORADOL PER ORDER. DENIES FURTHER NEEDS. WILL MONITOR. SIDE RAILS X 2. BED LOW. CALL LIGHT IN REACH.
[2017-04-29] VITALS (10 sets, daily range): BP systolic 101–151; BP diastolic 50–85
[2017-04-29 07:22] LABS: BASOPHILS 0.4 % (0-2); EOSINOPHILS 4.2 % (0-7); HEMATOCRIT 40.4 % (36.0-48.0); IMMATURE GRANULOCYTES 0.1 % (0-5); LYMPHOCYTES 41.3 % (15-50); MCH 29.7 pg (26.0-34.0); MCHC 34.7 g/dL (31.0-37.0); MCV 85.8 fL (80.0-100.0); MEAN PLATELET VOLUME 9.5 fL (7.4-10.4); MONOCYTES 9.3 % (2-11); NEUTROPHILS 44.7 % (40-80); PLATELET COUNT 214 10x3/uL (130-400); RBC 4.71 10x6/uL (4.00-5.40); RDW 12.5 % (11.5-14.5); WBC 7.2 10x3/uL (4.8-10.8)
[2017-04-29 07:44] LABS: ALBUMIN 3.5 g/dL (3.4-5.0); ALKALINE PHOSPHATASE 67 U/L (46-116); ALT (SGPT) 47 U/L (10-68); CALC OSMOLALITY 276 mosm/kg (275-300); CALCIUM 8.4 mg/dL (8.5-10.1); CARBON DIOXIDE 28.9 mmol/L (21.0-32.0); CHLORIDE - SERUM 105 mmol/L (98-107); CREATININE - SERUM 0.8 mg/dL (0.6-1.3); GLUCOSE 88 mg/dL (74-106); POTASSIUM - SERUM 3.8 mmol/L (3.5-5.1); PROTEIN - SERUM 6.9 g/dL (6.4-8.2); SODIUM 141 mmol/L (136-145); UREA NITROGEN 4 mg/dL (7-18); eGFR NON AFRICAN AMERICAN 78 mL/min (90-120)
--- NOTE | 2017-04-29 08:13 | NUR ---
PT SEEN EARILER. NO COMPLAINTS OF PAIN EXCEPT MILD 4/10 TO ABDOMEN. DOES NOT WANT PAIN MEDS AT THIS TIME. NPO FOR PROCEDURE DELIO TODAY. CALL LIGHT IN REACH
--- NOTE | 2017-04-29 09:48 | NUR ---
TO SURGERY PER BED. NO PREOP ORDERS
--- NOTE | 2017-04-29 12:02 | NUR ---
PATIENT TOLERATING ICE CHIPS WELL
--- NOTE | 2017-04-29 13:49 | NUR ---
C/O NAUSEA. INSTRUCTED PT TO BE EASY ON CARBONATED DRINKS AT BEDSIDE. ZOFRAN GIVEN REQUESTED. CALL LIGHT IN REACH
--- NOTE | 2017-04-29 15:37 | NUR ---
REPORT CALLED TO M[facility] IN [facility]. TO MOVE PER WC. BELONGINGS WITH PATIENT
--- NOTE | 2017-04-29 16:24 | NUR ---
CO NAUSEA. TOO EARLY FOR NAUSEA MEDS. B 76/48 RETAKEN AT 65/39. HOB LOWERED. WET CLOTH TO NECK. IV INCREASED TO 999CC/HR X 500 CC FOR BOLUS.
--- NOTE | 2017-04-29 16:28 | NUR ---
BP 57/37 STILL C/O NASUEA BUT NOT BAD. PLACED ON BEDPAN
--- NOTE | 2017-04-29 16:34 | NUR ---
BP 118/56. P 82 O2 SAT 98. HOB DOWN STILL. FLUIDS RUNNING BOLUS. AWAITING DR ALEXIS CALL BACK
--- NOTE | 2017-04-29 16:42 | NUR ---
BP 101/56 STATES FEELING BETTER. FACE HAS PINK COLOR AGAIN. NO NAUSEA AT PRESENT. CALL LIGHT IN REACH
--- NOTE | 2017-04-29 17:26 | NUR ---
DR DURHAM HERE. INFORMED OF LOW BP AND FLUID BOLUS. INSTRUCTED TO GIVE ANOTHER 500CC BOLUS. BP 92/48. HOB 20 DEGREES. PULSE 77 OXYGEN LEVEL 99 RA. CALL LIGHT IN REACH
[2017-04-29 18:48] LABS: HEMATOCRIT 30.7 % (36.0-48.0); HEMOGLOBIN 10.1 g/dL (12-16)
--- NOTE | 2017-04-29 19:06 | NUR ---
DR ALEXIS CALLED H/H RESULTS. HOB UP PER PT REQUEST. BP 100. IV INCREASED TO 200CC/HR
--- NOTE | 2017-04-29 19:15 | NUR ---
RECIEVED SHIFT REPORT. PT IS LYING IN BED. ALERT AND ORIENTED AND ABLE TO VERBALIZE NEEDS. IV IS PATENT AND FLUIDS ARE RUNNING PER ORDER. PT IS AMBULATORY BUT HAD ISSUES EARLIER IN THE DAY WITH BLOOD PRESSURE WHEN GETTING UP. SCD'S ON. PT STATES PAIN IS 9/10. NO NEEDS ARE VERBALIZED AT THIS TIME. WILL CONTINUE TO MONITOR. SIDE RAILS ARE UP X 2. BED IS IN LOWEST POSITION. CALL LIGHT IS WITHIN REACH.
--- NOTE | 2017-04-29 21:50 | NUR ---
SHIFT ASSESSMENT COMPLETED. NIGHT MEDS GIVEN WITH NO PROBLEMS. PT RECIEVED 4 UNITS INSULIN PER SLIDING SCALE FOR SIIT=769. PT C/O PAIN 02/02. ADMINISTERED PRESCRIBED PRN TORADOL PER ORDER. DENIES FURTHER NEEDS. WILL MONITOR. SIDE RAILS X 2. BED LOW. CALL LIGHT IN REACH.
[2017-04-29 23:08] LABS: BASOPHILS 0 % (0-2); EOSINOPHILS 0 % (0-7); HEMATOCRIT 26.4 % (36.0-48.0); HEMOGLOBIN 9.2 g/dL (12-16); IMMATURE GRANULOCYTES 0.2 % (0-5); LYMPHOCYTES 10.8 % (15-50); MCH 29.8 pg (26.0-34.0); MCHC 34.8 g/dL (31.0-37.0); MCV 85.4 fL (80.0-100.0); MEAN PLATELET VOLUME 8.9 fL (7.4-10.4); MONOCYTES 2.5 % (2-11); NEUTROPHILS 86.5 % (40-80); PLATELET COUNT 226 10x3/uL (130-400); RBC 3.09 10x6/uL (4.00-5.40); RDW 12.7 % (11.5-14.5); WBC 10.4 10x3/uL (4.8-10.8)
--- NOTE | 2017-04-29 23:43 | NUR ---
DR ALEXIS CALLED WITH CURRENT H&H. NO CURRENT ORDERS AT THIS TIME.
[2017-04-30] VITALS: BP 110/50
[2017-04-30 04:00] VITALS: BP 106/53
[2017-04-30 05:29] LABS: BASOPHILS 0 % (0-2); EOSINOPHILS 0 % (0-7); HEMATOCRIT 22.5 % (36.0-48.0); HEMOGLOBIN 7.8 g/dL (12-16); IMMATURE GRANULOCYTES 0.3 % (0-5); LYMPHOCYTES 16.2 % (15-50); MCH 29.2 pg (26.0-34.0); MCHC 34.7 g/dL (31.0-37.0); MCV 84.3 fL (80.0-100.0); MEAN PLATELET VOLUME 9.5 fL (7.4-10.4); MONOCYTES 6.8 % (2-11); NEUTROPHILS 76.7 % (40-80); PLATELET COUNT 211 10x3/uL (130-400); RBC 2.67 10x6/uL (4.00-5.40); RDW 12.9 % (11.5-14.5); WBC 11.6 10x3/uL (4.8-10.8)
[2017-04-30 06:17] LABS: ALBUMIN 2.8 g/dL (3.4-5.0); BILIRUBIN - TOTAL 0.3 mg/dL (0.2-1.3); CALCIUM 7.4 mg/dL (8.5-10.1); CREATININE - SERUM 0.9 mg/dL (0.6-1.3); POTASSIUM - SERUM 3.7 mmol/L (3.5-5.1); PROTEIN - SERUM 5.6 g/dL (6.4-8.2)
[2017-04-30 06:18] LABS: ANION GAP 13.6 mmol/L (8-16); CARBON DIOXIDE 21.1 mmol/L (21.0-32.0)
[2017-04-30 07:57] VITALS: BP 115/73
[2017-04-30 12:30] VITALS: BP 120/76
--- NOTE | 2017-04-30 13:28 | NUR ---
PT AOX4 RESP EVEN AND NONLABORED PT DENIES NEEDS AT THIS TIME IV TO RIGHT HAND PATENT AND INTACT AT THIS TIME SRX2 BED AT LOWEST SETTING CALL LIGHT WITHIN REACH WILL CONTINUE TO MONITOR
[2017-04-30 15:47] VITALS: BP 127/74
[2017-04-30 16:55] LABS: HEMATOCRIT 21.7 % (36.0-48.0); MCH 29.1 pg (26.0-34.0); MCHC 33.6 g/dL (31.0-37.0); MEAN PLATELET VOLUME 9.1 fL (7.4-10.4); RBC 2.51 10x6/uL (4.00-5.40); RDW 13.2 % (11.5-14.5)
[2017-04-30 17:20] LABS: HEMOGLOBIN 7.3 g/dL (12-16); MCV 86.5 fL (80.0-100.0)
--- NOTE | 2017-04-30 19:35 | NUR ---
RECIEVED SHIFT REPORT. PT IS LYING IN BED. ALERT AND ORIENTED AND ABLE TO VERBALIZE NEEDS. IV IS PATENT AND FLUIDS ARE RUNNING PER ORDER. PT IS AMBULATORY BUT WAS INSTRUCTED TO CALL FOR ANY ASSISTANE NEEDED. SCD'S OFF AT THIS TIME PT REQUEST. O2 @ 1.5 PER NASAL CANNULA. PT STATES PAIN IS 5/10. NO NEEDS ARE VERBALIZED AT THIS TIME. WILL CONTINUE TO MONITOR. SIDE RAILS ARE UP X 2. BED IS IN LOWEST POSITION. CALL LIGHT IS WITHIN REACH.
[2017-04-30 20:00] VITALS: BP 135/76
--- NOTE | 2017-04-30 22:20 | NUR ---
1ST UNIT PRBC'S STARTED. VSS. WILL MONITOR.
--- NOTE | 2017-04-30 22:25 | NUR ---
SHIFT ASSESSMENT COMPLETED. NIGHT MEDS GIVEN WITH NO PROBLEMS. PT RECIEVED NO INSULIN. TIHT=577. PT DOES NOT WANT INSULIN AT THIS TIME. PT C/O PAIN 02/02. ADMINISTERED PRESCRIBED PRN DILAUDID PER ORDER. DENIES FURTHER NEEDS. WILL MONITOR. SIDE RAILS X 2. BED LOW. CALL LIGHT IN REACH.
--- NOTE | 2017-04-30 22:35 | NUR ---
PT W/O REACTION TO TRANSFUSION AT THIS TIME. VSS. WILL MONITOR. SIDE RAILS X 2. BED LOW. CALL LIGHT IN REACH.
--- NOTE | 2017-05-01 01:10 | NUR ---
1ST UNIT PRBC'S FINISHED AND TUBE FLUSHING. VSS. PT W/O REACTION. SIDE RAILS X 2. BED LOW. CALL LIGHT IN REACH.
--- NOTE | 2017-05-01 02:55 | NUR ---
2ND UNIT PRBC'S STARTED. VSS. WILL MONITOR. SIDE RAILS X 2. BED LOW. CALL LIGHT IN REACH.
--- NOTE | 2017-05-01 03:10 | NUR ---
PT W/O REACTION TO TRANSFUSION. VSS. WILL MONITOR. SIDE RAILS X 2. BED LOW. CALL LIGHT IN REACH.
--- NOTE | 2017-05-01 03:55 | NUR ---
PT IV TO RIGHT HAND CAME OUT. CATHETER TIP INTACT.
--- NOTE | 2017-05-01 04:20 | NUR ---
NEW IV SITED TO RIGHT FOREARM X 1 ATTEMPT. 20G. GOOD BLOOD RETURN. FLUSHES W/O DIFFICULTY. BLOOD TRANSFUSION CONTINUED. SIDE RAILS X 2. BED LOW. CALL LIGHT IN REACH.
--- NOTE | 2017-05-01 05:25 | NUR ---
2ND UNIT PRBC'S FINISHED. PT REMAINED W/O REACTION. VSS. TUBE FLUSHING. SIDE RAILS X 2. BED LOW. CALL LIGHT IN REACH.
[2017-05-01 06:16] LABS: MCH 29.4 pg (26.0-34.0); MCHC 34.1 g/dL (31.0-37.0); MCV 86.1 fL (80.0-100.0); MEAN PLATELET VOLUME 9.1 fL (7.4-10.4); RDW 13.6 % (11.5-14.5); WBC 13.7 10x3/uL (4.8-10.8)
[2017-05-01 06:17] LABS: HEMOGLOBIN 9.9 g/dL (12-16); RBC 3.37 10x6/uL (4.00-5.40)
[2017-05-01 07:05] LABS: ALBUMIN 3.1 g/dL (3.4-5.0); ALKALINE PHOSPHATASE 53 U/L (46-116); BILIRUBIN - TOTAL 0.67 mg/dL (0.2-1.3); CALCIUM 7.6 mg/dL (8.5-10.1); CHLORIDE - SERUM 107 mmol/L (98-107); CREATININE - SERUM 0.7 mg/dL (0.6-1.3); GLUCOSE 107 mg/dL (74-106); POTASSIUM - SERUM 3.4 mmol/L (3.5-5.1); PROTEIN - SERUM 6.3 g/dL (6.4-8.2); SODIUM 142 mmol/L (136-145); eGFR NON AFRICAN AMERICAN > 90 mL/min (90-120)
[2017-05-01 07:08] LABS: ALT (SGPT) 26 U/L (10-68); CALC OSMOLALITY 281 mosm/kg (275-300); CARBON DIOXIDE 27.2 mmol/L (21.0-32.0); UREA NITROGEN 10 mg/dL (7-18)
--- NOTE | 2017-05-01 07:40 | NUR ---
ASSESSMENT COMPLETE. IV TO R FA PATENT. NS INFUSING AT 100 CC/HR VIA PUMP. O2 1.5L NC IN USE. INCISIONS TO 3 TO L ABDOMEN WITH BANDAIDS INTACT. DISTENSION NOTED TO LUQ. STATES SHE CAN'T LAY ON HER SIDE DUE TO FEELING PRESSURE. DENIES ANY NEEDS AT THIS TIME.
[2017-05-01 07:50] VITALS: BP 111/78
[2017-05-01 10:20] LABS: HEMATOCRIT 28.9 % (36.0-48.0); MCH 29.8 pg (26.0-34.0); MCHC 34.6 g/dL (31.0-37.0); MEAN PLATELET VOLUME 9.2 fL (7.4-10.4); RBC 3.36 10x6/uL (4.00-5.40); RDW 13.6 % (11.5-14.5); WBC 12.2 10x3/uL (4.8-10.8)
[2017-05-01 12:26] VITALS: BP 134/80
--- NOTE | 2017-05-01 12:37 | NUR ---
CHIEF COOK DILAUDID 0.2-10-4 SETUP FOR PAIN CONTROL.
--- NOTE | 2017-05-01 15:30 | NUR ---
HAD LIQUID BROWN STOOL WITH SMALL AMOUNT OF SEDIMENT NOTED IN TOILET.
[2017-05-01 15:32] VITALS: BP 103/52
--- NOTE | 2017-05-01 15:42 | NUR ---
CALLED TO ROOM BY PATIENT. STATES SHE STARTED SWEATING AND WAS WORRIED THAT HER BLOOD PRESSURE HAD DROPPED SINCE PLANT SECURITY GUARD WAS STARTED. VSS. 153/80 HR 71 O2 SAT 95-97% ON RA.
[2017-05-01 16:34] LABS: HEMATOCRIT 28.4 % (36.0-48.0); HEMOGLOBIN 9.5 g/dL (12-16); MCH 28.7 pg (26.0-34.0); MCHC 33.5 g/dL (31.0-37.0); MCV 85.8 fL (80.0-100.0); MEAN PLATELET VOLUME 9.2 fL (7.4-10.4); RBC 3.31 10x6/uL (4.00-5.40); RDW 13.7 % (11.5-14.5); WBC 12.3 10x3/uL (4.8-10.8)
--- NOTE | 2017-05-01 18:00 | NUR ---
VISITING WITH FAMILY. DENIES ANY NEEDS AT THIS TIME.
[2017-05-01 20:00] VITALS: BP 125/95
[2017-05-01 22:29] LABS: HEMATOCRIT 29.9 % (36.0-48.0); HEMOGLOBIN 10.2 g/dL (12-16); MCH 29.5 pg (26.0-34.0); MCHC 34.1 g/dL (31.0-37.0); MCV 86.4 fL (80.0-100.0); MEAN PLATELET VOLUME 9.2 fL (7.4-10.4); RBC 3.46 10x6/uL (4.00-5.40); RDW 13.6 % (11.5-14.5); WBC 12.9 10x3/uL (4.8-10.8)
[2017-05-02 04:00] VITALS: BP 142/85
[2017-05-02 05:09] LABS: BASOPHILS 0.2 % (0-2); EOSINOPHILS 2.2 % (0-7); HEMATOCRIT 30.2 % (36.0-48.0); HEMOGLOBIN 10.1 g/dL (12-16); IMMATURE GRANULOCYTES 0.4 % (0-5); LYMPHOCYTES 33.5 % (15-50); MCH 28.9 pg (26.0-34.0); MCHC 33.4 g/dL (31.0-37.0); MCV 86.5 fL (80.0-100.0); MEAN PLATELET VOLUME 9.6 fL (7.4-10.4); MONOCYTES 10.4 % (2-11); NEUTROPHILS 53.3 % (40-80); PLATELET COUNT 199 10x3/uL (130-400); RBC 3.49 10x6/uL (4.00-5.40); RDW 13.6 % (11.5-14.5)
[2017-05-02 05:29] LABS: ALBUMIN 3.1 g/dL (3.4-5.0); ALKALINE PHOSPHATASE 53 U/L (46-116); ALT (SGPT) 25 U/L (10-68); BILIRUBIN - TOTAL 0.79 mg/dL (0.2-1.3); CALC OSMOLALITY 280 mosm/kg (275-300); CALCIUM 8.2 mg/dL (8.5-10.1); CHLORIDE - SERUM 102 mmol/L (98-107); CREATININE - SERUM 0.7 mg/dL (0.6-1.3); GLUCOSE 106 mg/dL (74-106); POTASSIUM - SERUM 3.6 mmol/L (3.5-5.1); PROTEIN - SERUM 6.7 g/dL (6.4-8.2); SODIUM 142 mmol/L (136-145); eGFR NON AFRICAN AMERICAN > 90 mL/min (90-120)
[2017-05-02 05:31] LABS: UREA NITROGEN 6 mg/dL (7-18)
--- NOTE | 2017-05-02 07:40 | NUR ---
ASSESSMENT COMPLETE. IV TO R FA PATENT. NS INFUSING AT 100 CC/HR VIA PUMP. DESKTOP SUPPORT ENGINEER DILAUDID 0.2-10-4 IN USE FOR PAIN CONTROL. O2 1.5L NC IN USE. LAP SITES X 3 TO L ABDOMEN. DENIES ANY NEEDS AT THIS TIME.
[2017-05-02 08:10] VITALS: BP 114/82
[2017-05-02 10:26] VITALS: Ht 157.5 cm; Wt 83.9 kg
[2017-05-02 11:11] LABS: % SATURATION 13 % (15-55); IRON 34 ug/dl (35-150); TOTAL IRON BIND CAPACITY 250 ug/dl (260-445); UNSAT IRON BIND CAPACITY 216 ug/dl (150-375)
[2017-05-02 11:26] LABS: URIC ACID 3.5 mg/dL (2.6-7.2)
--- NOTE | 2017-05-02 12:00 | NUR ---
NO CHANGES NOTED AT THIS TIME.
--- NOTE | 2017-05-02 12:11 | NUR ---
NUTRITION F/U CHART REVIEWED, PT TOLERATING REG DIET WITH 100% INTAKE RECENT MEALS. WILL CONTINUE TO PROVIDE DIET, MONITOR PO INTAKE. RD FOLLOWING
[2017-05-02 12:53] VITALS: BP 132/72
[2017-05-02] MEDS ORDERED: HYDROCODONE-APA1 TAB PO (13:01)
[2017-05-02] MEDS ORDERED: E.E.S. 200200 MG/5 M PO (13:04)
[2017-05-02 14:06] LABS: ERYTHROCYTE SEDIMENTATION RATE 20 mm/hr (0-30)
--- NOTE | 2017-05-02 14:43 | NUR ---
PATIENT DISCHARGING HOME TODAY DENIES ANY HH NEEDS. HAS CPAP COMPANY COMING OUT TO SET UP HER CPAP AT HOME. IMM SERVED CM WILL FOLLOW NEEDED
--- NOTE | 2017-05-02 15:10 | NUR ---
IV REMOVED. CATHETER TIP INTACT. DISCHARGE TEACHING GIVEN TO PATIENT. VOICED UNDERSTANDING. SCRIPT FOR HYDROCODONE GIVEN TO PATIENT. AWAITING RIDE HOME.
--- NOTE | 2017-05-02 16:00 | NUR ---
DC'D HOME WITH FAMILY. ESCORTED TO VEHICLE BY DEVELOPMENTAL MATHEMATICS PROFESSOR VIA WC WITH BELONGINGS.
[2017-05-03 07:22] LABS: FOLATE (FOLIC ACID) - SERUM 12.9 ng/mL (>3.0)
--- NOTE | 2017-05-06 12:19 | OP ---
PATIENT NAME: ANNIE PEÑA MEDICAL RECORD: [id number] :58 LOCATION:D[facility] ADMISSION DATE:04/24/17 SURGEON: JD ALEXIS MD DATE OF OPERATION: 04/29/2017 PREOPERATIVE DIAGNOSES: 1. Subacute abdominal pain. 2. Mesenteric lymphadenopathy. 3. Diabetes mellitus. 4. Hypertension. 5. History of pheochromocytoma. 6. Chronic back pain. POSTOPERATIVE DIAGNOSES: 1. Subacute abdominal pain. 2. Mesenteric lymphadenopathy. 3. Diabetes mellitus. 4. Hypertension. 5. History of pheochromocytoma. 6. Chronic back pain. PROCEDURE: Diagnostic laparoscopy with mesenteric lymph node biopsies. SURGEON: Jd Alexis MD REPORT OF PROCEDURE: The patient's abdomen was prepped and draped in sterile fashion. A Veress needle was inserted in the left upper quadrant and the abdomen was insufflated. Visiport 5-mm trocar was placed in the left lower quadrant. Once inside, I could see the patient's Veress needle and this was not penetrating any abdominal structures and there was no sign of any trauma. The Veress needle was then removed. Two more 5-mm trocars were placed in the left lateral abdomen. The patient had some adhesions present in the pelvis and mainly of the omentum to the anterior abdominal wall. These were teased down carefully with blunt dissection and sharp dissection. We eventually were able to free up the mesentery enough that we could find the small bowel to began to run the small bowel from the terminal ileum back towards the ligament of Treitz and did not see any gross abnormalities of the small bowel as we performed this maneuver. We could see the mesentery of the small bowel at the base in the left upper quadrant, the mesenteric peritoneum was a kind of whitish houser color and appeared quite inflamed. There appeared to be nodular structures underneath consistent with lymph nodes that were seen on the CT scan preoperatively. I was able to take a small piece of the mesenteric peritoneum and sent it off for permanent specimen and this was labeled as a mesenteric implant. As we dissected down into the mesenteric tissue, I was able to find firm structure which appeared to be an enlarged lymph node. This was excised and sent off for permanent specimen as a mesenteric lymph node. We inspected the area and I stopped any bleeding that was present. We then irrigated out the abdominal cavity. I inspected the patient's stomach and liver and there are no signs of any masses, lesions, or inflammation present there. At this point, the ports and insufflation were then removed. The wounds were infused with 10 mL of 0.25% Marcaine plain and then closed with subcutaneous 5-0 Monocryl. COMPLICATIONS: None. CONDITION: Stable. OPERATIVE REPORT [id number] ANNIE PEÑA ANESTHESIA: General endotracheal and local. BLOOD LOSS: 50 mL. TRANSINT:[id number] Voice Confirmation ID: [id number] DOCUMENT ID: [id number] JD ALEXIS MD at 1219 CC: [id number] DICTATION DATE: 04/29/17 1134 [facility] ROOM LABORER: 04/29/17 1443 [facility] 05/02/17 [id number] [place] [address]
[2017-06-02] MEDS ORDERED: COLACE100 MG PO (12:08)
[2017-06-02] MEDS ORDERED: GLYCOLAX527 GM PO (12:08)
[2017-06-02] MEDS ORDERED: LEVAQUIN500 MG PO (12:09)
== END 2017-05-02 16:00 | disposition home or self-care (01) | DRG 824 ==
LOC: D.MS 17:45
PROVIDERS: Family Medicine; Nurse Practitioner Family; Surgery; ADMIT Family Medicine
PROC: 07BB4ZX Excision of Mesenteric Lymphatic, Percutaneous Endoscopic Approach, Diagnostic (ICD-10-PCS; principal; 2017-04-24)
DX: C85.93 Non-Hodgkin lymphoma, unspecified, intra-abdominal lymph nodes (principal); D62 Acute posthemorrhagic anemia; E11.65 Type 2 diabetes mellitus with hyperglycemia; E11.40 Type 2 diabetes mellitus with diabetic neuropathy, unspecified; I10 Essential (primary) hypertension; K59.00 Constipation, unspecified; G89.29 Other chronic pain

== ENCOUNTER 2017-05-12 08:46 | Outpatient (CLI) | payer MEDICARE ==
[~2017-05-12] VITALS: Ht 157.5 cm; Wt 81.8 kg
[~2017-05-12 08:46] MED LIST changes: +E.E.S. 200200 MG/5 M PO; +HYDROCODONE-APA1 TAB PO; +NEXIUM40 MG; +REGLAN10 MG PO
[2017-05-12] MEDS ORDERED: MORPHINE SULFAT15 M4 PO (10:49)
[2017-05-12 10:57] VITALS: BP 109/91; Ht 157.5 cm; Wt 81.8 kg
[2017-05-12 11:08] LABS: BASOPHILS 0.3 % (0-2); EOSINOPHILS 2.1 % (0-7); HEMATOCRIT 39.8 % (36.0-48.0); HEMOGLOBIN 13.2 g/dL (12-16); IMMATURE GRANULOCYTES 0.3 % (0-5); LYMPHOCYTES 27.4 % (15-50); MCH 29.4 pg (26.0-34.0); MCHC 33.2 g/dL (31.0-37.0); MCV 88.6 fL (80.0-100.0); MONOCYTES 7.4 % (2-11); NEUTROPHILS 62.5 % (40-80); RBC 4.49 10x6/uL (4.00-5.40); RDW 13.4 % (11.5-14.5); WBC 11.8 10x3/uL (4.8-10.8)
[2017-05-12 11:09] LABS: PLATELET COUNT 357 10x3/uL (130-400)
[2017-05-12 11:21] LABS: APTT 28.3 SECONDS (22.8-39.4)
[2017-05-12 11:22] LABS: INR 1.01 (0.85-1.17); PROTIME 12.9 SECONDS (11.6-15.0)
[2017-05-12 11:25] LABS: CALC OSMOLALITY 272 mosm/kg (275-300); CARBON DIOXIDE 27.8 mmol/L (21.0-32.0); CHLORIDE - SERUM 101 mmol/L (98-107); CREATININE - SERUM 0.8 mg/dL (0.6-1.3); GLUCOSE 129 mg/dL (74-106); POTASSIUM - SERUM 4.2 mmol/L (3.5-5.1); SODIUM 136 mmol/L (136-145); UREA NITROGEN 11 mg/dL (7-18); eGFR NON AFRICAN AMERICAN 78 mL/min (90-120)
--- NOTE | 2017-05-12 12:15 | NUR ---
PT REC'D TO ROOM FROM IR. DROWSY, BUT RESPONDS TO VERBAL STIMULI. DRESSING TO LEFT HIP C/D/I. REQUESTED AND PROVIDED ICE WATER.
--- NOTE | 2017-05-12 12:55 | NUR ---
REG DIET PROVIDED AND TOLERATED. DRESSING REMAINS C/D/I. SEE FREQUENT VS SHEET FOR V/S.
--- NOTE | 2017-05-12 14:17 | NUR ---
IV D/C'D CATH INTACT. D/C INSTRUCTIONS EXPLAINED TO PT. VOICED UNDERSTANDING. COPIES OF ALL GIVEN. AWAITING TRANSPORTATION FOR D/C.
--- NOTE | 2017-05-12 14:30 | NUR ---
D/C'D HOME VIA W/C TO PRIVATE CAR.
[2017-06-02] MEDS ORDERED: COLACE100 MG PO (12:08)
[2017-06-02] MEDS ORDERED: GLYCOLAX527 GM PO (12:08)
[2017-06-02] MEDS ORDERED: LEVAQUIN500 MG PO (12:09)
== END 2017-05-12 14:30 | disposition home or self-care (01) ==
LOC: D.OPS 08:46 → D.CT 11:00 → D.OPS 14:30 → D.CT 05-14 10:00
PROVIDERS: General Practice
DX: C83.03 Small cell B-cell lymphoma, intra-abdominal lymph nodes (principal); Z01.812 Encounter for preprocedural laboratory examination

== ENCOUNTER → 2017-06-02 13:53 | Outpatient (CLI) | payer MEDICARE ==
[2017-05-12 10:57] VITALS: BMI 33.0
[~2017-06-02 13:53] MED LIST changes: +GLYCOLAX527 GM PO; +LEVAQUIN500 MG PO; +MORPHINE SULFAT15 M4 PO
== END | disposition home or self-care (01) ==
LOC: D.CT 13:53
DX: R53.83 Other fatigue (principal); J18.9 Pneumonia, unspecified organism; R05 Cough

== ENCOUNTER 2017-06-03 06:55 | Day surgery (SDC) | payer MEDICARE ==
[~2017-06-03] VITALS: Ht 157.5 cm; Wt 81.2 kg
--- NOTE | ~2017-06-03 | OP ---
PATIENT NAME: ANNIE PEÑA MEDICAL RECORD: [id number] :58 LOCATION:D.OPS ADMISSION DATE: SURGEON: SHAHBAZ ALEXIS MD DATE OF OPERATION: 06/03/2017 PREOPERATIVE DIAGNOSES: 1. Intra-abdominal lymphoma. 2. B-cell lymphoma. 3. Diabetes mellitus. 4. Hypertension. 5. Gastroparesis. POSTOPERATIVE DIAGNOSES: 1. Intra-abdominal lymphoma. 2. B-cell lymphoma. 3. Diabetes mellitus. 4. Hypertension. 5. Gastroparesis. PROCEDURE: Left subclavian vein port placement. SURGEON: Shahbaz Alexis MD REPORT OF PROCEDURE: The patient's left chest was prepped and draped in sterile fashion. A total of 20 mL of 0.25% Marcaine and 1% lidocaine with epinephrine was infused into the surrounding tissues. A needle was used to cannulate the left subclavian vein and a guidewire was advanced with ease. Fluoro was used to note that the wire was in good position in the venous system. A cutdown was made on the superolateral aspect of the left chest and a subcutaneous pouch was made over the pectoral fascia. The catheter was tunneled between this pouch and the wire exit site. The port was then sutured to the pectoral fascia using interrupted 2-0 Prolenes times 2. The catheter was then cut with a beveled tip. The dilator trocar device was placed over the wire and the wire and dilator were removed. The catheter tip was advanced through the trocar and the trocar was removed. The catheter tip was resting in good position in the superior vena cava. The catheter aspirated nonpulsatile dark blood and flushed easily with heparinized saline. The subcutaneous tissues were reapproximated with interrupted 3-0 Vicryl and the skin was closed with running subcutaneous 5-0 Monocryl. COMPLICATIONS: None. CONDITION: Stable. ANESTHESIA: TIVA and local. BLOOD LOSS: Minimal. TRANSINT:[id number] Voice Confirmation ID: [id number] DOCUMENT ID: [id number] OPERATIVE REPORT [id number] ANNIE PEÑA SHAHBAZ ALEXIS MD at 0956 CC: LULI CAMPOS MD and CAITLIN FITZGERALD MD [id number] DICTATION DATE: 06/03/17 1024 IMAGE ARCHIVIST: 06/03/17 1204 [facility] 06/03/17 [facility] [address] [id number]
[2017-06-03 07:47] LABS: ANION GAP 13.8 mmol/L (8-16); CALCIUM 9.3 mg/dL (8.5-10.1); CARBON DIOXIDE 28.4 mmol/L (21.0-32.0); CREATININE - SERUM 0.9 mg/dL (0.6-1.3); POTASSIUM - SERUM 4.2 mmol/L (3.5-5.1)
[2017-06-03 08:04] VITALS: BP 105/69; Ht 157.5 cm; Wt 81.2 kg
[2017-06-03] MEDS ORDERED: HYDROCODONE-APA1 TAB PO (10:20)
== END 2017-06-03 14:35 | disposition home or self-care (01) ==
LOC: D.OPS 06:55 → D.PAN 09:00 → D.OPS 14:35
PROVIDERS: Anesthesiology
DX: C85.10 Unspecified B-cell lymphoma, unspecified site (principal); C85.83 Other specified types of non-Hodgkin lymphoma, intra-abdominal lymph nodes; E11.9 Type 2 diabetes mellitus without complications; I10 Essential (primary) hypertension; K31.84 Gastroparesis; G47.30 Sleep apnea, unspecified; K21.9 Gastro-esophageal reflux disease without esophagitis; K44.9 Diaphragmatic hernia without obstruction or gangrene; Z01.812 Encounter for preprocedural laboratory examination

== ENCOUNTER 2017-06-03 16:50 | Emergency (ER) | payer MEDICARE ==
[2017-06-03 08:04] VITALS: BMI 32.8
[2017-06-03 18:20] LABS: BASOPHILS 0.3 % (0-2); EOSINOPHILS 1.3 % (0-7); HEMATOCRIT 39.2 % (36.0-48.0); HEMOGLOBIN 13.1 g/dL (12-16); IMMATURE GRANULOCYTES 0.2 % (0-5); MCH 29.1 pg (26.0-34.0); MCHC 33.4 g/dL (31.0-37.0); MCV 87.1 fL (80.0-100.0); MEAN PLATELET VOLUME 9.6 fL (7.4-10.4); MONOCYTES 10.6 % (2-11); NEUTROPHILS 58.6 % (40-80); RDW 12.7 % (11.5-14.5); WBC 9.5 10x3/uL (4.8-10.8)
[2017-06-03 18:22] LABS: PLATELET COUNT 219 10x3/uL (130-400)
[2017-06-03 18:43] LABS: ALBUMIN 3.4 g/dL (3.4-5.0); ALKALINE PHOSPHATASE 81 U/L (46-116); ALT (SGPT) 44 U/L (10-68); BILIRUBIN - TOTAL 0.24 mg/dL (0.2-1.3); CALCIUM 8.6 mg/dL (8.5-10.1); CARBON DIOXIDE 24.6 mmol/L (21.0-32.0); CHLORIDE - SERUM 101 mmol/L (98-107); CREATININE - SERUM 0.9 mg/dL (0.6-1.3); POTASSIUM - SERUM 4.1 mmol/L (3.5-5.1); PROTEIN - SERUM 7.1 g/dL (6.4-8.2); SODIUM 134 mmol/L (136-145); UREA NITROGEN 10 mg/dL (7-18); eGFR NON AFRICAN AMERICAN 68 mL/min (90-120)
[2017-06-03 18:46] LABS: CALC OSMOLALITY 271 mosm/kg (275-300); GLUCOSE 189 mg/dL (74-106); TROPONIN-I < 0.017 ng/mL (0.000-0.060)
== END 2017-06-03 20:04 | disposition home or self-care (01) ==
LOC: D.ER 16:50
PROVIDERS: Physician Assistant Medical
DX: G89.18 Other acute postprocedural pain (principal); E11.9 Type 2 diabetes mellitus without complications; C85.90 Non-Hodgkin lymphoma, unspecified, unspecified site

== ENCOUNTER → 2017-06-23 15:39 | Outpatient (CLI) | payer MEDICARE ==
[2017-06-03 08:04] VITALS: BMI 32.8
== END | disposition home or self-care (01) ==
LOC: D.LAB 06-13 11:00
DX: B96.81 Helicobacter pylori [H. pylori] as the cause of diseases classified elsewhere (principal)

== ENCOUNTER → 2017-07-23 11:40 | Outpatient (CLI) | payer MEDICARE ==
[2017-07-23 12:51] LABS: CREATININE - SERUM 0.8 mg/dL (0.6-1.3)
== END | disposition home or self-care (01) ==
LOC: D.CT 07-21 08:30
PROVIDERS: Legal Medicine
DX: C83.03 Small cell B-cell lymphoma, intra-abdominal lymph nodes (principal)

== ENCOUNTER → 2017-07-24 08:02 | Outpatient (CLI) | payer MEDICARE ==
[2017-07-24 08:48] LABS: ALBUMIN 3.4 g/dL (3.4-5.0); BILIRUBIN - DIRECT 0.12 mg/dL (0.00-0.30); BILIRUBIN - INDIRECT 0.18 mg/dL (0.00-1.00); BILIRUBIN - TOTAL 0.3 mg/dL (0.2-1.3); PROTEIN - SERUM 7.6 g/dL (6.4-8.2)
== END | disposition home or self-care (01) ==
LOC: D.US 08:02
PROVIDERS: Internal Medicine Gastroenterology
DX: K76.0 Fatty (change of) liver, not elsewhere classified (principal)

== ENCOUNTER → 2017-08-15 07:23 | Outpatient (CLI) | payer MEDICARE | END | disposition home or self-care (01) | LOC: D.SP 07:23 | DX: C83.03 Small cell B-cell lymphoma, intra-abdominal lymph nodes (principal); I10 Essential (primary) hypertension; Z01.812 Encounter for preprocedural laboratory examination ==

== ENCOUNTER → 2017-09-17 08:56 | Outpatient (CLI) | payer MEDICARE, OTHER | END | disposition home or self-care (01) | LOC: D.SP 09-16 08:00 | DX: C85.93 Non-Hodgkin lymphoma, unspecified, intra-abdominal lymph nodes (principal) ==

== ENCOUNTER 2017-10-08 09:00 | Outpatient (CLI) | payer MEDICARE, OTHER ==
[~2017-10-08] VITALS: Ht 157.5 cm; Wt 81.8 kg
[2017-10-08 10:38] LABS: CREATININE - SERUM 0.9 mg/dL (0.6-1.3)
[2017-10-08 12:47] VITALS: Ht 157.5 cm; Wt 81.8 kg
== END 2017-10-08 13:15 | disposition home or self-care (01) ==
LOC: D.CT 09:00 → D.OPS 09:00 → D.CT 09:30 → D.OPS 13:15
PROVIDERS: Legal Medicine
DX: C85.90 Non-Hodgkin lymphoma, unspecified, unspecified site (principal)

== ENCOUNTER 2017-11-04 06:46 | Day surgery (SDC) | payer MEDICARE, OTHER ==
[~2017-11-04] VITALS: Ht 157.5 cm; Wt 81.6 kg
--- NOTE | ~2017-11-04 | OP ---
PATIENT NAME: ANNIE PEÑA MEDICAL RECORD: [id number] :58 LOCATION:D.OPS ADMISSION DATE: SURGEON: SHAHBAZ ALEXIS MD DATE OF OPERATION: 11/04/2017 PREOPERATIVE DIAGNOSES: 1. Malfunctioning central venous catheter. 2. B-cell lymphoma. 3. Hypertension. 4. Diabetes mellitus. 5. History of pheochromocytoma. POSTOPERATIVE DIAGNOSES: 1. Malfunctioning central venous catheter. 2. B-cell lymphoma. 3. Hypertension. 4. Diabetes mellitus. 5. History of pheochromocytoma. PROCEDURE: 1. Removal and replacement of left subclavian vein PowerPort . 2. Fluoroscopic interpretation. SURGEON: Shahbaz Alexis MD REPORT OF PROCEDURE: The patient's chest was prepped and draped in sterile fashion. Image was taken and it showed that the indwelling port was resting at the entrance of the patient's superior vena cava. A skin incision was made overlying the left upper chest port and also overlying the catheter insertion site. We were able to elevate the catheter out of the catheter insertion site and this was transected. A guidewire was then advanced through the indwelling catheter and the catheter was removed. Fluoro was used to note that the wire was in good position in the venous system projecting towards the heart. The port was then completely excised. A new PowerPort was inserted and tunneled between this port site and the wire exit site. The catheter was cut with a beveled tip at 30 cm. The dilator trocar device was placed over the wire and the wire and dilator were removed. The catheter tip was advanced through the trocar with ease. The catheter tip was noted to be resting in good position at the right atrial superior vena caval junction. There was no sign of any arrhythmias with the insertion of the longer catheter. The port was then placed into the subcutaneous pouch. The subcutaneous tissues were irrigated out and infused with 10 mL of 0.25% Marcaine with epinephrine. The subcutaneous tissues were reapproximated with interrupted 3-0 Vicryls and the skin incisions were closed with subcutaneous 5-0 Monocryl. COMPLICATIONS: None. CONDITION: Stable. ANESTHESIA: General endotracheal and local. BLOOD LOSS: Minimal. TRANSINT:[id number] Voice Confirmation ID: [id number] DOCUMENT ID: [id number] OPERATIVE REPORT [id number] ANNIE PEÑA SHAHBAZ ALEXIS MD at 1228 CC: CAITLIN FITZGERALD and RUSSELL PASTRANA MD [id number] DICTATION DATE: 11/04/17 1017 [employer] COMMERCIAL SALESPERSON: 11/04/17 1310 [facility] [place] 11/04/17 [facility] [address] [place] [address]
[~2017-11-04 06:46] MED LIST changes: +AMBIEN10 MG PO; +BUTRANS1 EAC3 TRANSDERM; +OXY IR30 MG PO
[2017-11-04 07:10] LABS: BASOPHILS 0.5 % (0-2); EOSINOPHILS 2.9 % (0-7); HEMATOCRIT 43.1 % (36.0-48.0); HEMOGLOBIN 14.8 g/dL (12-16); IMMATURE GRANULOCYTES 0.1 % (0-5); LYMPHOCYTES 34.1 % (15-50); MCH 29.5 pg (26.0-34.0); MCHC 34.3 g/dL (31.0-37.0); MEAN PLATELET VOLUME 9.4 fL (7.4-10.4); MONOCYTES 9.9 % (2-11); NEUTROPHILS 52.5 % (40-80); PLATELET COUNT 190 10x3/uL (130-400); RBC 5.01 10x6/uL (4.00-5.40); WBC 8.9 10x3/uL (4.8-10.8)
[2017-11-04 07:19] LABS: INR 1.07 (0.85-1.17); PROTIME 13.5 SECONDS (11.6-15.0)
[2017-11-04 07:34] LABS: CALC OSMOLALITY 277 mosm/kg (275-300); CALCIUM 8.6 mg/dL (8.5-10.1); CARBON DIOXIDE 27.9 mmol/L (21.0-32.0); CHLORIDE - SERUM 102 mmol/L (98-107); CREATININE - SERUM 0.8 mg/dL (0.6-1.3); GLUCOSE 177 mg/dL (74-106); POTASSIUM - SERUM 4.1 mmol/L (3.5-5.1); SODIUM 137 mmol/L (136-145); UREA NITROGEN 12 mg/dL (7-18); eGFR NON AFRICAN AMERICAN 78 mL/min (90-120)
[2017-11-04 08:10] VITALS: BP 108/71; Ht 157.5 cm; Wt 81.6 kg
[2017-11-04] MEDS ORDERED: HYDROCODONE-APA1 TAB PO (10:12)
== END 2017-11-04 12:20 | disposition home or self-care (01) ==
LOC: D.OPS 06:46 → D.PAN 09:10 → D.OPS 09:10
PROVIDERS: Anesthesiology
DX: T82.898A Other specified complication of vascular prosthetic devices, implants and grafts, initial encounter (principal); C85.10 Unspecified B-cell lymphoma, unspecified site; D36.7 Benign neoplasm of other specified sites; I10 Essential (primary) hypertension; E11.9 Type 2 diabetes mellitus without complications; Z01.812 Encounter for preprocedural laboratory examination

== ENCOUNTER 2017-12-26 15:53 | Emergency (ER) | payer MEDICARE, OTHER ==
[~2017-12-26] VITALS: Ht 157.5 cm; Wt 81.8 kg
[2017-12-26 16:30] VITALS: Ht 157.5 cm; Wt 81.8 kg
[2017-12-26] MEDS ORDERED: OXYCONTIN10 MG PO (16:34)
[2017-12-26] MEDS ORDERED: NYSTATIN ORAL SU5 ML (16:35)
[2017-12-26 16:59] LABS: BASOPHILS 0.5 % (0-2); EOSINOPHILS 2.4 % (0-7); HEMATOCRIT 45.3 % (36.0-48.0); HEMOGLOBIN 15.7 g/dL (12-16); IMMATURE GRANULOCYTES 0.1 % (0-5); LYMPHOCYTES 28.3 % (15-50); MCH 29.2 pg (26.0-34.0); MCHC 34.7 g/dL (31.0-37.0); MCV 84.2 fL (80.0-100.0); MEAN PLATELET VOLUME 9.9 fL (7.4-10.4); MONOCYTES 9.6 % (2-11); NEUTROPHILS 59.1 % (40-80); PLATELET COUNT 211 10x3/uL (130-400); RBC 5.38 10x6/uL (4.00-5.40); RDW 12.8 % (11.5-14.5); WBC 8.6 10x3/uL (4.8-10.8)
[2017-12-26 17:11] LABS: APTT 24.7 SECONDS (22.8-39.4); INR 0.97 (0.85-1.17); PROTIME 12.5 SECONDS (11.6-15.0)
[2017-12-26 17:12] LABS: D-DIMER-QUANTITATIVE < 0.27 ug/mLFEU (0.20-0.54)
[2017-12-26 17:15] LABS: ALBUMIN 3.5 g/dL (3.4-5.0); ALKALINE PHOSPHATASE 91 U/L (46-116); ALT (SGPT) 79 U/L (10-68); BILIRUBIN - TOTAL 0.31 mg/dL (0.2-1.3); CALC OSMOLALITY 276 mosm/kg (275-300); CALCIUM 8.6 mg/dL (8.5-10.1); CARBON DIOXIDE 27.8 mmol/L (21.0-32.0); CHLORIDE - SERUM 101 mmol/L (98-107); CREATININE - SERUM 0.9 mg/dL (0.6-1.3); GLUCOSE 156 mg/dL (74-106); POTASSIUM - SERUM 3.9 mmol/L (3.5-5.1); PROTEIN - SERUM 7.7 g/dL (6.4-8.2); SODIUM 136 mmol/L (136-145); UREA NITROGEN 18 mg/dL (7-18); eGFR NON AFRICAN AMERICAN 68 mL/min (90-120)
[2017-12-26 17:28] LABS: CKMB 0.7 U/L (0.0-3.6); CREATINE KINASE 36 UL (21-215); PRO BNP 52 pg/mL (0-125)
[2017-12-26 17:29] LABS: TROPONIN-I < 0.017 ng/mL (0.000-0.060)
[2017-12-26 20:38] VITALS: BP 128/88
[2017-12-26] MEDS ORDERED: VALIUM 2 MG TAB2 MG PO (20:56)
== END 2017-12-26 21:26 | disposition home or self-care (01) ==
LOC: D.ER 15:53
PROVIDERS: Family Medicine
DX: R06.02 Shortness of breath (principal); M54.6 Pain in thoracic spine; C85.90 Non-Hodgkin lymphoma, unspecified, unspecified site; I10 Essential (primary) hypertension

== ENCOUNTER → 2018-02-03 08:10 | Outpatient (CLI) | payer MEDICARE, OTHER ==
[2017-12-26 16:30] VITALS: BMI 33.0
[~2018-02-03 08:10] MED LIST changes: +NYSTATIN ORAL SU5 ML; +OXYCONTIN10 MG PO; +VALIUM 2 MG TAB2 MG PO
[2018-02-03 10:26] LABS: ERYTHROCYTE SEDIMENTATION RATE 14 mm/hr (0-30)
[2018-02-04 10:20] LABS: IMMUNOGLOBULIN A <5 mg/dL (87-352)
[2018-02-04 12:18] LABS: ANA REFLEX - DIRECT Negative (Negative)
[2018-02-05 06:14] LABS: IGG SUBCLASS 1 764 mg/dL (248-810); IGG SUBCLASS 2 537 mg/dL (130-555); IGG SUBCLASS 3 52 mg/dL (15-102); IGG SUBCLASS 4 28 mg/dL (2-96)
== END | disposition home or self-care (01) ==
LOC: D.RT 02-02 08:00 → D.LAB 02-02 09:00 → D.RT 08:00
PROVIDERS: Internal Medicine Pulmonary Disease
DX: Z87.09 Personal history of other diseases of the respiratory system (principal); G89.29 Other chronic pain

== ENCOUNTER → 2018-05-08 11:49 | Outpatient (CLI) | payer MEDICARE, OTHER ==
[2017-12-26 16:30] VITALS: BMI 33.0
== END | disposition home or self-care (01) ==
LOC: D.CT 11:49
DX: C85.90 Non-Hodgkin lymphoma, unspecified, unspecified site (principal)

== ENCOUNTER 2018-05-26 13:08 | Emergency (ER) | payer MEDICARE, OTHER ==
[~2018-05-26] VITALS: Ht 157.5 cm; Wt 88.6 kg
[2018-05-26 13:14] VITALS: Ht 157.5 cm; Wt 88.6 kg
[2018-05-26] MEDS ORDERED: CHEMO (13:16)
[2018-05-26] MEDS ORDERED: NORCO 10-325 TA1 TAB PO (13:16)
[2018-05-26] MEDS ORDERED: XANAX1 MG PO (13:16)
[2018-05-26 13:47] LABS: BASOPHILS 0.3 % (0-2); EOSINOPHILS 1.9 % (0-7); HEMATOCRIT 42.7 % (36.0-48.0); HEMOGLOBIN 14.5 g/dL (12-16); IMMATURE GRANULOCYTES 0.3 % (0-5); LYMPHOCYTES 24.4 % (15-50); MCH 29.7 pg (26.0-34.0); MCV 87.5 fL (80.0-100.0); MONOCYTES 9.2 % (2-11); NEUTROPHILS 63.9 % (40-80); PLATELET COUNT 208 10x3/uL (130-400); RBC 4.88 10x6/uL (4.00-5.40); RDW 12.6 % (11.5-14.5); WBC 10.8 10x3/uL (4.8-10.8)
[2018-05-26 14:01] LABS: APTT 31.2 SECONDS (22.8-39.4); INR 1.14 (0.85-1.17); PROTIME 14.1 SECONDS (11.6-15.0)
[2018-05-26 14:03] LABS: ALBUMIN 3.3 g/dL (3.4-5.0); ALKALINE PHOSPHATASE 120 U/L (46-116); ALT (SGPT) 60 U/L (10-68); BILIRUBIN - TOTAL 0.45 mg/dL (0.2-1.3); CALC OSMOLALITY 279 mosm/kg (275-300); CALCIUM 8.9 mg/dL (8.5-10.1); CARBON DIOXIDE 28.7 mmol/L (21.0-32.0); CHLORIDE - SERUM 98 mmol/L (98-107); CREATININE - SERUM 0.8 mg/dL (0.6-1.3); GLUCOSE 341 mg/dL (74-106); POTASSIUM - SERUM 4.3 mmol/L (3.5-5.1); PROTEIN - SERUM 7.6 g/dL (6.4-8.2); SODIUM 134 mmol/L (136-145); UREA NITROGEN 9 mg/dL (7-18); eGFR NON AFRICAN AMERICAN 78 mL/min (90-120)
[2018-05-26 14:14] LABS: CKMB 0.2 U/L (0.0-3.6); CREATINE KINASE 41 UL (21-215); PRO BNP 67 pg/mL (0-125)
[2018-05-26 14:18] LABS: TROPONIN-I < 0.017 ng/mL (0.000-0.060)
[2018-05-26 17:13] VITALS: BP 145/92
== END 2018-05-26 17:14 | disposition home or self-care (01) ==
LOC: D.ER 13:08
PROVIDERS: Emergency Medicine
DX: R06.02 Shortness of breath (principal)

== ENCOUNTER → 2018-06-22 20:25 | Outpatient (CLI) | payer MEDICARE, OTHER ==
[2018-05-26 13:14] VITALS: BMI 35.7
[~2018-06-22 20:25] MED LIST changes: +CHEMO; +NORCO 10-325 TA1 TAB PO; +XANAX1 MG PO
== END | disposition home or self-care (01) ==
LOC: D.LABREF 20:25
DX: L02.412 Cutaneous abscess of left axilla (principal)

== ENCOUNTER → 2018-07-15 16:45 | Outpatient (CLI) | payer OTHER ==
[2018-05-26 13:14] VITALS: BMI 35.7
== END | disposition home or self-care (01) ==
LOC: D.RAD 16:45
DX: J06.9 Acute upper respiratory infection, unspecified (principal)

== ENCOUNTER 2018-08-27 23:44 | Emergency (ER) | payer OTHER ==
[~2018-08-27] VITALS: Ht 157.5 cm; Wt 86.4 kg
[2018-08-27 23:57] VITALS: Ht 157.5 cm; Wt 86.4 kg
[2018-08-28] MEDS ORDERED: HUMULIN R100 U/ML SC
[2018-08-28] MEDS ORDERED: SOLIQUA 100 UNIT3 ML SQ
[2018-08-28 00:22] LABS: BASOPHILS 0.3 % (0-2); EOSINOPHILS 2.3 % (0-7); HEMATOCRIT 39.2 % (36.0-48.0); HEMOGLOBIN 13.6 g/dL (12-16); IMMATURE GRANULOCYTES 0.3 % (0-5); LYMPHOCYTES 24.6 % (15-50); MCH 29.6 pg (26.0-34.0); MCHC 34.7 g/dL (31.0-37.0); MCV 85.2 fL (80.0-100.0); MEAN PLATELET VOLUME 9.3 fL (7.4-10.4); MONOCYTES 9.8 % (2-11); NEUTROPHILS 62.7 % (40-80); PLATELET COUNT 214 10x3/uL (130-400); RDW 12.8 % (11.5-14.5); WBC 9.6 10x3/uL (4.8-10.8)
[2018-08-28 00:34] LABS: ALBUMIN 3.3 g/dL (3.4-5.0); ALKALINE PHOSPHATASE 88 U/L (46-116); ALT (SGPT) 52 U/L (10-68); BILIRUBIN - TOTAL 0.33 mg/dL (0.2-1.3); CALC OSMOLALITY 275 mosm/kg (275-300); CALCIUM 8.2 mg/dL (8.5-10.1); CARBON DIOXIDE 26.3 mmol/L (21.0-32.0); CHLORIDE - SERUM 99 mmol/L (98-107); CREATININE - SERUM 0.8 mg/dL (0.6-1.3); GLUCOSE 295 mg/dL (74-106); POTASSIUM - SERUM 3.7 mmol/L (3.5-5.1); PROTEIN - SERUM 7.4 g/dL (6.4-8.2); SODIUM 133 mmol/L (136-145); UREA NITROGEN 11 mg/dL (7-18); eGFR NON AFRICAN AMERICAN 77 mL/min (90-120)
[2018-08-28 01:50] LABS: APPEARANCE CLEAR (CLEAR); BILIRUBIN NEGATIVE (NEGATIVE); COLOR YELLOW (YELLOW); GLUCOSE 1000 mg/dL (NEGATIVE); KETONE NEGATIVE (NEGATIVE); NITRITE NEGATIVE (NEGATIVE); PROTEIN NEGATIVE (NEGATIVE); SPECIFIC GRAVITY 1.015 (1.005-1.020); UROBILINOGEN NORMAL (NORMAL)
[2018-08-28] MEDS ORDERED: MECLIZINE HCL25 MG PO (02:08)
[2018-08-28 02:30] VITALS: BP 155/91
== END 2018-08-28 02:30 | disposition home or self-care (01) ==
LOC: D.ER 23:44
PROVIDERS: Emergency Medicine
DX: R42 Dizziness and giddiness (principal); E11.65 Type 2 diabetes mellitus with hyperglycemia; Z79.4 Long term (current) use of insulin

== ENCOUNTER 2018-11-15 08:16 | Inpatient (IN) | payer OTHER ==
[~2018-11-15] VITALS: Ht 157.5 cm; Wt 85.7 kg
[~2018-11-15 08:16] MED LIST changes: +HUMULIN R100 U/ML SC; +MECLIZINE HCL25 MG PO; +SOLIQUA 100 UNIT3 ML SQ
--- NOTE | 2018-11-15 09:10 | NUR ---
PD AT BEDSIDE BADGE #[id number] & #[id number]
[2018-11-15 09:32] LABS: BASOPHILS 0.4 % (0-2); EOSINOPHILS 5.5 % (0-7); HEMATOCRIT 41.2 % (36.0-48.0); HEMOGLOBIN 14.5 g/dL (12-16); IMMATURE GRANULOCYTES 0.1 % (0-5); LYMPHOCYTES 15.5 % (15-50); MCH 29.9 pg (26.0-34.0); MCHC 35.2 g/dL (31.0-37.0); MCV 84.9 fL (80.0-100.0); MEAN PLATELET VOLUME 9.4 fL (7.4-10.4); MONOCYTES 12.1 % (2-11); NEUTROPHILS 66.4 % (40-80); PLATELET COUNT 220 10x3/uL (130-400); RBC 4.85 10x6/uL (4.00-5.40); RDW 12.7 % (11.5-14.5); WBC 8.1 10x3/uL (4.8-10.8)
[2018-11-15 09:39] LABS: APTT 29.9 SECONDS (22.8-39.4); INR 1.1 (0.85-1.17); PROTIME 13.7 SECONDS (11.6-15.0)
[2018-11-15 09:41] LABS: APPEARANCE CLOUDY (CLEAR); COLOR ORANGE (YELLOW)
[2018-11-15 09:42] LABS: AMORPHOUS SEDIMENT <1+ /lpf (NONE SEEN); BACTERIA MANY /hpf (NONE SEEN); EPITHELIAL CELLS 0-5 /hpf (0-5); WHITE CELLS - URINE >50 /hpf (0-5)
[2018-11-15 09:54] LABS: ALBUMIN 3.2 g/dL (3.4-5.0); ALKALINE PHOSPHATASE 82 U/L (46-116); ALT (SGPT) 32 U/L (10-68); BILIRUBIN - TOTAL 0.45 mg/dL (0.2-1.3); CALC OSMOLALITY 268 mosm/kg (275-300); CALCIUM 8.5 mg/dL (8.5-10.1); CHLORIDE - SERUM 99 mmol/L (98-107); CREATININE - SERUM 0.9 mg/dL (0.6-1.3); GLUCOSE 122 mg/dL (74-106); POTASSIUM - SERUM 3.7 mmol/L (3.5-5.1); PROTEIN - SERUM 7.7 g/dL (6.4-8.2); SODIUM 135 mmol/L (136-145); UREA NITROGEN 7 mg/dL (7-18); eGFR NON AFRICAN AMERICAN 68 mL/min (90-120)
[2018-11-15 09:56] LABS: CKMB 0.2 U/L (0.0-3.6); CREATINE KINASE 369 UL (21-215); TROPONIN-I < 0.017 ng/mL (0.000-0.060)
[2018-11-15 10:04] VITALS: BP 141/105
--- NOTE | 2018-11-15 10:55 | NUR ---
ASSISTED PATIENT TO RESTROOM. NO NEEDS NOTED. UPDATED ON PLAN OF CARE AND DELAYS IN CARE.
--- NOTE | 2018-11-15 11:23 | NUR ---
PATIENT ROOM NUMBER CHANGED TO [id number]. CALLED REPORT TO MIKE DUCKWORTH
[2018-11-15] MEDS ORDERED: TRESIBA FL100 UNIT/1 SC (11:47)
[2018-11-15] MEDS ORDERED: TOPROL XL50 MG PO (11:47)
--- NOTE | 2018-11-15 13:45 | NUR ---
PT IS PLESANT, FRIENDS AND FAMILY AT BEDSIDE. PT REPORTS FEELING SLUGGISH AND "OUT OF IT". PT IS ALERT AND ORIENTED X4, BUT HAVING SOME EXPRESSIVE DYSPHASIA, TAKING SEVERAL TRIES TO COME UP WIT THE APPROPRIATE WORDS FOR THE CONVERSATION/QUESTION. SHE SEEMS SLIGHTLY DAZED. PT TOLD RN SIMON THAT SHE USUSALLY TAKES HER MEDICATIONS (NEUROTIN, PAIN MEDICINE, AND TRAMDOL) AT THE SAME TIME. EDUCATED THAT THIS WHICH MAY HAVE IMPACTED HER MENTAL STATE. PT STATES SHE DOES NOT BELIEVE THAT THIS IS THE CASE AT THIS TIME. NO COMPLAINTS/CONCERNS, USES CL FOR MINIMAL ASSISTANCE TO THE BATHROOM.
[2018-11-15 14:08] VITALS: BP 135/82; BMI 36.6
[2018-11-15 15:21] VITALS: BP 119/68
--- NOTE | 2018-11-15 18:48 | NUR ---
PT AWAKE AND ORIENTED, APPROVED NORCO/10Q8 PRN PER HER HOME MEDICATION LIST. ADMINISTERED. PT STATES SHE IN GENERALIZED PAIN. NO OTHER COMPLAINTS, CONCERNS, COMMENTS OR QUESTIONS AT THIS TIME. CL IN REACH, SRX2.
--- NOTE | 2018-11-15 19:00 | NUR ---
EVENING ROUNDS COMPLETED. REPORT RECEIVED. PT SITTING UP IN BED WITH EYES OPEN, RR EVEN AND UNLABORED. BED IN LOW POSITION. NO S/S OF DISTRESS NOTED. INTRODUCED SELF TO PT. PT DENIES FURTHER NEEDS AT THIS TIME. CALL LIGHT IN REACH. WILL CTM.
[2018-11-15 20:00] VITALS: BP 118/72
[2018-11-16 00:11] VITALS: BP 96/60
--- NOTE | 2018-11-16 03:29 | NUR ---
I have reviewed this patient and I concur with the Shift Assessment completed by the Licensed Practical Nurse today this shift.
[2018-11-16 04:00] VITALS: BP 108/59
--- NOTE | 2018-11-16 05:07 | NUR ---
PT LYING ON LEFT SIDE IN BED WITH EYES CLOSED, RR EVEN AND UNLABORED. NO S/S OF DISTRESS NOTED. BED IN LOW POSITION. CALL LIGHT IN REACH. WILL CTM.
--- NOTE | 2018-11-16 06:21 | NUR ---
177 BLOOD SUGAR TREATED ORDERED PER SLIDING SCALE. PT DENIES FURTHER NEEDS AT THIS TIME. CALL LIGHT IN REACH. WILL CTM.
[2018-11-16 06:26] LABS: BASOPHILS 0.3 % (0-2); EOSINOPHILS 7.2 % (0-7); HEMATOCRIT 40.9 % (36.0-48.0); HEMOGLOBIN 13.9 g/dL (12-16); IMMATURE GRANULOCYTES 0.1 % (0-5); LYMPHOCYTES 13.7 % (15-50); MCH 29.2 pg (26.0-34.0); MCV 85.9 fL (80.0-100.0); MEAN PLATELET VOLUME 9.5 fL (7.4-10.4); NEUTROPHILS 67.7 % (40-80); PLATELET COUNT 230 10x3/uL (130-400); RBC 4.76 10x6/uL (4.00-5.40); RDW 12.9 % (11.5-14.5); WBC 6.9 10x3/uL (4.8-10.8)
[2018-11-16 06:40] LABS: ANION GAP 9.1 mmol/L (8-16); CALCIUM 8.7 mg/dL (8.5-10.1); CARBON DIOXIDE 30.2 mmol/L (21.0-32.0)
[2018-11-16 06:41] LABS: POTASSIUM - SERUM 4.3 mmol/L (3.5-5.1)
--- NOTE | 2018-11-16 07:19 | NUR ---
PT ASLEEP WHEN I ENTERED, DID NOT FURTHER DISTURB FURTHER AT THIS TIME. BREATHS EVEN/REGUALR. NO DISTRESS NOTED AT THIS ITME. CL IN REACH, SRX2.
[2018-11-16 09:01] VITALS: BP 130/66
[2018-11-16 11:41] VITALS: BP 92/57
[2018-11-16 13:43] VITALS: Ht 157.5 cm; Wt 85.7 kg
--- NOTE | 2018-11-16 14:06 | NUR ---
PT REFUSES SCD/S. SHE IS UP AD DEBORAH, WALKS FREQUENTLY
--- NOTE | 2018-11-16 15:59 | NUR ---
I have reviewed this patient and I concur with the Shift Assessment completed by the Licensed Practical Nurse today this shift.
[2018-11-16 18:48] VITALS: BP 140/77
--- NOTE | 2018-11-16 19:26 | NUR ---
PT LYING IN BED. CALL LIGHT IN REACH. DENIES NEEDS AT THIS TIME. BED IN LOW. SIDE RAILS X2. A/O X4. RESP EVEN AND UNLABORED. WCTM
[2018-11-16 20:00] VITALS: BP 114/52
[2018-11-17] VITALS: BP 110/58
--- NOTE | 2018-11-17 00:16 | NUR ---
PT RESTING QUIETLY. CALL LIGHT IN REACH. NO DISTRESS NOTED. BED IN LOW SIDE RAILS X2. RESP EVEN AND UNLABORED. CPOC
--- NOTE | 2018-11-17 00:38 | NUR ---
I have reviewed this patient and I concur with the Shift Assessment completed by the Licensed Practical Nurse today this shift.
[2018-11-17 04:00] VITALS: BP 119/59
--- NOTE | 2018-11-17 04:13 | NUR ---
went to give pt pain med and iv in right forearm infiltrated. new iv inserted in left ac with 22guage. tolerated well. denies further needs
[2018-11-17 06:40] LABS: BASOPHILS 0.3 % (0-2); EOSINOPHILS 6.9 % (0-7); HEMATOCRIT 39.8 % (36.0-48.0); HEMOGLOBIN 13.6 g/dL (12-16); IMMATURE GRANULOCYTES 0.3 % (0-5); LYMPHOCYTES 13.3 % (15-50); MCH 29.2 pg (26.0-34.0); MCHC 34.2 g/dL (31.0-37.0); MCV 85.4 fL (80.0-100.0); MEAN PLATELET VOLUME 9.5 fL (7.4-10.4); MONOCYTES 9.1 % (2-11); NEUTROPHILS 70.1 % (40-80); PLATELET COUNT 254 10x3/uL (130-400); RBC 4.66 10x6/uL (4.00-5.40); RDW 12.9 % (11.5-14.5); WBC 7.7 10x3/uL (4.8-10.8)
[2018-11-17 06:52] LABS: CALCIUM 8.4 mg/dL (8.5-10.1); CARBON DIOXIDE 28.2 mmol/L (21.0-32.0); CHLORIDE - SERUM 103 mmol/L (98-107); POTASSIUM - SERUM 3.9 mmol/L (3.5-5.1); SODIUM 138 mmol/L (136-145); eGFR NON AFRICAN AMERICAN 90 mL/min (90-120)
[2018-11-17 06:56] LABS: CALC OSMOLALITY 276 mosm/kg (275-300); CREATININE - SERUM 0.7 mg/dL (0.6-1.3); GLUCOSE 149 mg/dL (74-106); UREA NITROGEN 8 mg/dL (7-18)
[2018-11-17 08:37] VITALS: BP 129/75
--- NOTE | 2018-11-17 14:53 | NUR ---
Nutrition education for DMT2: Intructed pt on diabetic diet. Provided pt with printed diet information and reviewed information with pt. Pts glucose under better control now. Pt also with RDN name and phone number. RDN will be available if needed. RDN following.
--- NOTE | 2018-11-17 14:54 | NUR ---
ALERT AND ORIENTED X4. SHOWER AND LINEN CHANGE COMPLETE. DC TELEMETRY PER ORDER. CONTINUE PAIN MANAGEMENT ORDERED. DENIES ANY NEEDS AT THIS TIME. CONTINUE PLAN OF CARE AND SAFETY PRECAUTIONS.
[2018-11-17 18:31] VITALS: BP 130/33
[2018-11-17 18:36] VITALS: BP 124/64
--- NOTE | 2018-11-17 19:06 | NUR ---
PT IN BED. DENIES NEEDS AT THIS TIME.
[2018-11-17 20:00] VITALS: BP 111/66
[2018-11-18] VITALS: BP 110/62
[2018-11-18 04:00] VITALS: BP 120/49
[2018-11-18 07:04] LABS: BASOPHILS 0.3 % (0-2); EOSINOPHILS 6.9 % (0-7); HEMATOCRIT 39.7 % (36.0-48.0); HEMOGLOBIN 13.4 g/dL (12-16); IMMATURE GRANULOCYTES 0.3 % (0-5); LYMPHOCYTES 16.6 % (15-50); MCH 29.1 pg (26.0-34.0); MCHC 33.8 g/dL (31.0-37.0); MCV 86.3 fL (80.0-100.0); MEAN PLATELET VOLUME 9.2 fL (7.4-10.4); MONOCYTES 11.2 % (2-11); NEUTROPHILS 64.7 % (40-80); PLATELET COUNT 256 10x3/uL (130-400); WBC 6.7 10x3/uL (4.8-10.8)
--- NOTE | 2018-11-18 07:10 | NUR ---
REPORT RECEIVED FROM CAMPUS ADMINISTRATOR AND PATIENT CARE ASSUMED. PATIENT LAYING IN BED ON BACK AWAKE, ALERT AND ORIENTED X4. PATIENT IS STABLE AND VSS. PATIENT DENIES ANY NEEDS OR PAIN . PATIENT REQUESTS THAT SHE NOT BE GIVEN ANY MORE DILAUDED DUE TO ENJOYING THE FEELING THAT IT GIVES HER . SHE REQUESTS THAT SHE ONLY TAKE NORCO FOR PAIN. WILL CONTINUE WITH PLAN OF CARE. SR UP X 2 BED IN LOW POSITION AND CALL LIGHT IN REACH.
[2018-11-18 07:31] LABS: CALC OSMOLALITY 279 mosm/kg (275-300); CALCIUM 8.9 mg/dL (8.5-10.1); CARBON DIOXIDE 29.7 mmol/L (21.0-32.0); CHLORIDE - SERUM 103 mmol/L (98-107); CREATININE - SERUM 0.8 mg/dL (0.6-1.3); GLUCOSE 158 mg/dL (74-106); POTASSIUM - SERUM 4.1 mmol/L (3.5-5.1); SODIUM 139 mmol/L (136-145); UREA NITROGEN 9 mg/dL (7-18); eGFR NON AFRICAN AMERICAN 77 mL/min (90-120)
--- NOTE | 2018-11-18 09:34 | NUR ---
PATIENT AWAKE, ALERT AND AND ORIENTED X 4 AND SITTING UP IN BEDSIDE CHAIR. PATIENT DENIES ANY NEEDS OR PAIN. ASSESSMENT COMPLETED. PATIENT IS STABLE AND VSS. WILL CONTINUE TO MONITOR. CALL LIGHT IN REACH.
[2018-11-18 09:47] VITALS: BP 113/66
--- NOTE | 2018-11-18 13:15 | MORECARE ---
CASE MANAGEMENT DISCHARGE SUMMARY PATIENT: ANNIE PEÑA UNIT: [id number] ADM DATE: 11/15/18 AGE: 58 : 56 SEX: F ROOM/BED: D.7716 AUTHOR: SHA,DOC PHYSICIAN: REFERRING PHYSICIAN: MOISE NAIK MD DATE OF SERVICE: 11/18/18 Discharge Plan Patient Name: ANNIE PEÑA Facility: [facility]:[place] : 1960 Planned Disposition: Home Anticipated Discharge Date: Discharge Date: Expected LOS: Initial Reviewer: [id number] Initial Review Date: 11/18/2018 Generated: 11/18/18 2:15 pm Comments DCP- Discharge Planning Updated by [id number]: Shivam Ballard on 11/18/18 12:[address] Patient Name: ANNIE PEÑA Admission Status: ER Accout number: [id number] Admission Date: 11-15-2018 : 1960 Admission Diagnosis:URINARY TRACT INFECTION, SITE NOT SPECIFIED Attending: MOISE NAIK Current LOS: 3 Anticipated DC Date: Planned Disposition: Home Primary Insurance: [employer] Discharge Planning Comments: CM MET WITH PT IN ROOM TO DISCUSS DISCHARGE PLANNING AND NEEDS. PT REPORTS LIVING AT HOME INDEPENDENTLY WITH A FRIEND. PT HAS A CANE THAT SHE IS NOT CURRENTLY USING, PT PREFERS [facility] FOR HER MEDICAL EQUIPMENT. PT HAS NO OUTSIDE SERVICES ASSISTING IN THE HOME. CM DISCUSSED AVAILABILITY OF HOME HEALTH, REHAB SERVICES AND MEDICAL EQUIPMENT. PT WOULD LIKE SOMEONE TO JUST CHECK ON HER FOR A COUPLE OF WEEKS AFTER DISCHARGE. CM EXPLAINED THAT PT WILL HAVE TO HAVE SKILLED NEED FOR HOME HEALTH, PT REPORTS KNOWING THIS AND SHE WORKS FOR [employer]. PT WOULD LIKE [facility] IF SHE NEEDS IT AND IF NOT, SHE WOULD LIKE [facility] FOR HOME FOLLOW UP. CHOICE FOR [facility] SIGNED. PT REPORTS HER FRIEND OR FAMILY WILL PICK HER UP FOR DISCHARGE HOME. IMPORTANT MESSAGE FROM MEDICARE PROVIDED AND EXPLAINED. PT PLANS TO DISCHARGE HOME WITH HER FRIEND. PT ASKED FOR HOUSECALLS OR HOME HEALTH. CM TO ARRANGE [facility] IF THERE IS A SKILLED NEED AND WITH PHYSICIAN AGREEMENT AND ORDER. Deep Submergence Vehicle Operator: Shivam Ballard DCPIA - Discharge Planning Initial Assessment Updated by [id number]: Shivam Ballard on 11/18/18 1:09 pm * Is the patient Alert and Oriented? Yes * How many steps to enter\exit or inside your home? * PCP DR. FITZGERALD * Pharmacy [facility] [address] * Preadmission Environment Home Alone * ADLs Independent * Equipment Cane * Other Equipment [facility], MEDICAL EQUIPMENT PROVIDER PREFERENCE * List name and contact numbers for known caregivers / representatives who currently or will assist patient after discharge: MCKENNA CHAMPION, SISTER, MAYRA SWEENEY, DTR, * Verbal permission to speak to the caregivers and representatives has been obtained from the patient. N/A * Community resources currently utilized None * Please name any agencies selected above. NONE * Additional services required to return to the preadmission environment? No * Can the patient safely return to the preadmission environment? Yes * Has this patient been hospitalized within the prior 30 days at any hospital? No Coverage Notice Reviewer: [id number] Frida Ballard Notice Issued Date-Time: 11/18/2018 10:00 Notice Type: Patient Choice Letter Notice Delivered To: Patient Relationship to Patient: Press Set Up Person Name: Delivery Method: HAND - Hand Delivered Rena Days: Prior Verbal Notification: Recipient Understood Notice: Yes Recipient Signature: Yes Med Rec Note Co-signed by Attending: Coverage Notice Comment: [facility] Reviewer: [id number] Frida Ballard Notice Issued Date-Time: 11/18/2018 10:00 Notice Type: IM Discharge Notice Notice Delivered To: Patient Relationship to Patient: Press Set Up Person Name: Delivery Method: HAND - Hand Delivered Rena Days: Prior Verbal Notification: Recipient Understood Notice: Yes Recipient Signature: Yes Med Rec Note Co-signed by Attending: Coverage Notice Comment: Patient Name: ANNIE PEÑA Page [id number] at 1315 All edits/amendments must be made on the electronic document DICTATION DATE: 11/18/18 1315 CUSTOMER LEADER: TATA 11/18/18 1315 RPT#: [id number] DC DATE: STATUS: ADM IN [facility] [place] [address] END OF REPORT
--- NOTE | 2018-11-18 14:26 | NUR ---
PATIENT LAYING IN BED ON BACK. PATIENT COMPLAINS OF LOWER BACK PAIN AT AN "8" AND REQUESTS NORCO. PATIENT MEDICATED PER JUL WITH NORCO . WILL CONTINIUE TO MONITOR . SR UP X 2 BED IN LOW POSITION AND CALL LIGHT IN REACH.
[2018-11-18 17:47] VITALS: BP 1058/61
[2018-11-18 17:56] VITALS: BP 108/74
--- NOTE | 2018-11-18 18:42 | NUR ---
ORDER RECEIVED FOR NS AT 125. PATIENT HAS LEFT AC IV SL. PATIENT IS INSISTENT THAT CHEST PORT BE USED AND PATIENT TOLD THIS NURSE THAT DR ECKERT AND EDUARDO GARCIA SAID THAT PORT COULD BE ACCESSED. SPOKE WITH EDUARDO GARCIA IN PERSON AND SHE DID GIVE A VERBAL OK FOR CHEST PORT TO BE ACCESSED AND USED. TWO ATTEMPTS MADE WITHOUT BLOOD RETURN. ATTEMPTED TO USE LEFT AC TO START FLUIDS BUT PATIENT REFUSED STATING THAT SHE WILL WAIT UNTIL SUCCESFUL ACCESS TO PORT. GAVE REPORT TO MIKE CARTER CONFERENCE TRANSLATOR NURSE.
--- NOTE | 2018-11-18 19:51 | NUR ---
PT IN BED. DENIES NEEDS AT THIS TIME.
[2018-11-18 20:00] VITALS: BP 133/53
[2018-11-19 00:30] VITALS: BP 106/61
[2018-11-19 04:30] VITALS: BP 108/63
[2018-11-19 05:14] LABS: BASOPHILS 1.1 % (0-2); EOSINOPHILS 5.8 % (0-7); HEMATOCRIT 37.3 % (36.0-48.0); HEMOGLOBIN 12.7 g/dL (12-16); IMMATURE GRANULOCYTES 0.3 % (0-5); LYMPHOCYTES 22.5 % (15-50); MCH 29.4 pg (26.0-34.0); MCV 86.3 fL (80.0-100.0); MEAN PLATELET VOLUME 9.1 fL (7.4-10.4); MONOCYTES 12.5 % (2-11); NEUTROPHILS 57.8 % (40-80); PLATELET COUNT 267 10x3/uL (130-400); RBC 4.32 10x6/uL (4.00-5.40); RDW 12.8 % (11.5-14.5); WBC 6.4 10x3/uL (4.8-10.8)
[2018-11-19 05:45] LABS: CALC OSMOLALITY 283 mosm/kg (275-300); CALCIUM 8.5 mg/dL (8.5-10.1); CARBON DIOXIDE 31.6 mmol/L (21.0-32.0); CHLORIDE - SERUM 104 mmol/L (98-107); CREATININE - SERUM 0.8 mg/dL (0.6-1.3); GLUCOSE 164 mg/dL (74-106); POTASSIUM - SERUM 4.1 mmol/L (3.5-5.1); SODIUM 141 mmol/L (136-145); UREA NITROGEN 10 mg/dL (7-18); eGFR NON AFRICAN AMERICAN 77 mL/min (90-120)
--- NOTE | 2018-11-19 07:10 | NUR ---
REPORT RECEIVED FROM MATERIAL DISTRIBUTOR AND PATIENT CARE ASSUMED. PATIENT LAYING IN BED ON RT SIDE WITH EYES CLOSED AND BREATHING EVENLY. PATIENT IS STABLE AND VSS. WILL CONTINUE WITH PLAN OF CARE. SR UP X 2 BED IN LOW POSITION AND CALL LIGHT IN REACH.
[2018-11-19 07:48] VITALS: BP 124/60
--- NOTE | 2018-11-19 08:30 | NUR ---
PATIENT COMPLAINS OF BACK PAIN OF AN (8) ON SCALE OF 10 AND REQUESTS DILAUDED. MEDICATED PER MAR. PATIENT IS STABLE AND VSS. WILL CONTINUE TO MONITOR. SR UP X 2 BED IN LOW POSITION AND CALL LIGHT IN REACH.
--- NOTE | 2018-11-19 09:30 | NUR ---
PATIENT LAYING IN BED ON RT SIDE WITH EYES CLOSED AND BREATHING EVENLY. WILL CONTINUE TO MONITOR. SR UP X 2 BED IN LOW POSITION AND CALL LIGHT IN REACH.
--- NOTE | 2018-11-19 10:30 | NUR ---
PATIENT AMBULATING IN HALLWAY WITH PT. PATIENT TOLERATING WELL.
[2018-11-19 13:15] VITALS: BP 129/74
[2018-11-19] MEDS ORDERED: LEVOFLOXACIN500 MG PO (14:24)
[2018-11-19 14:58] VITALS: BP 86/35
[2018-11-19 15:51] VITALS: BP 126/80
--- NOTE | 2018-11-19 17:40 | NUR ---
PATIENT IS STABLE AND VSS. ORDERS RECEIVED FOR DC. PATIENT DENIES ANY NEEDS OR PAIN. LT CHEST PORT INFUSION DC/D. TREJO NEEDLE EXTRACTED WITHOUT DIFFICULTY. NO BLEEDING NOTED. COVERED WITH A BANDAID. DC INSTRUCTIONS GIVEN VERBALLY AND WRIITEN. PATIENT VERBALIZED UNDERSTANDING AND SIGNED PAPERWORK. PATIENT TRANSPORTED VIA WC TO FRONT DOOR AND PRIVATE VEHICLE DRIVEN BY FRINED.
--- NOTE | 2018-11-20 08:58 | MORECARE ---
CASE MANAGEMENT DISCHARGE SUMMARY PATIENT: ANNIE PEÑA UNIT: [id number] ADM DATE: 11/15/18 AGE: 58 : 56 SEX: F ROOM/BED: D.1494 AUTHOR: SHA,DOC PHYSICIAN: REFERRING PHYSICIAN: MOISE NAIK MD DATE OF SERVICE: 11/20/18 Discharge Plan Patient Name: ANNIE PEÑA Facility: [facility]:[place] : 1960 Planned Disposition: Home Anticipated Discharge Date: 11/19/18 Discharge Date: 11/19/2018 Expected LOS: 4 Initial Reviewer: [email or web address] Initial Review Date: 11/18/2018 Generated: 11/20/18 9:57 am Comments DCP- Discharge Planning Updated by [id number]: Shivam Ballard on 11/18/18 12:[address] Patient Name: ANNIE PEÑA Admission Status: ER Accout number: [id number] Admission Date: 11-15-2018 : 1960 Admission Diagnosis:URINARY TRACT INFECTION, SITE NOT SPECIFIED Attending: MOISE NAIK Current LOS: 3 Anticipated DC Date: Planned Disposition: Home Primary Insurance: NOV[employer] Discharge Planning Comments: CM MET WITH PT IN ROOM TO DISCUSS DISCHARGE PLANNING AND NEEDS. PT REPORTS LIVING AT HOME INDEPENDENTLY WITH A FRIEND. PT HAS A CANE THAT SHE IS NOT CURRENTLY USING, PT PREFERS [facility] FOR HER MEDICAL EQUIPMENT. PT HAS NO OUTSIDE SERVICES ASSISTING IN THE HOME. CM DISCUSSED AVAILABILITY OF HOME HEALTH, REHAB SERVICES AND MEDICAL EQUIPMENT. PT WOULD LIKE SOMEONE TO JUST CHECK ON HER FOR A COUPLE OF WEEKS AFTER DISCHARGE. CM EXPLAINED THAT PT WILL HAVE TO HAVE SKILLED NEED FOR HOME HEALTH, PT REPORTS KNOWING THIS AND SHE WORKS FOR [employer]. PT WOULD LIKE [facility] IF SHE NEEDS IT AND IF NOT, SHE WOULD LIKE [facility] FOR HOME FOLLOW UP. CHOICE FOR [facility] SIGNED. PT REPORTS HER FRIEND OR FAMILY WILL PICK HER UP FOR DISCHARGE HOME. IMPORTANT MESSAGE FROM MEDICARE PROVIDED AND EXPLAINED. PT PLANS TO DISCHARGE HOME WITH HER FRIEND. PT ASKED FOR HOUSECALLS OR HOME HEALTH. CM TO ARRANGE [facility] IF THERE IS A SKILLED NEED AND WITH PHYSICIAN AGREEMENT AND ORDER. Pattern Perforating Machine Operator: Shivam Ballard DCPIA - Discharge Planning Initial Assessment Updated by [id number]: Shivam Ballard on 11/18/18 1:09 pm * Is the patient Alert and Oriented? Yes * How many steps to enter\exit or inside your home? * PCP DR. FITZGERALD * Pharmacy [facility] [address] * Preadmission Environment Home Alone * ADLs Independent * Equipment Cane * Other Equipment [facility], MEDICAL EQUIPMENT PROVIDER PREFERENCE * List name and contact numbers for known caregivers / representatives who currently or will assist patient after discharge: MCKENNA CHAMPION, SISTER, MAYRA SWEENEY, DTR, * Verbal permission to speak to the caregivers and representatives has been obtained from the patient. N/A * Community resources currently utilized None * Please name any agencies selected above. NONE * Additional services required to return to the preadmission environment? No * Can the patient safely return to the preadmission environment? Yes * Has this patient been hospitalized within the prior 30 days at any hospital? No Coverage Notice Reviewer: [id number] Frida Ballard Notice Issued Date-Time: 11/18/2018 10:00 Notice Type: Patient Choice Letter Notice Delivered To: Patient Relationship to Patient: Hr Advisor Name: Delivery Method: HAND - Hand Delivered Rena Days: Prior Verbal Notification: Recipient Understood Notice: Yes Recipient Signature: Yes Med Rec Note Co-signed by Attending: Coverage Notice Comment: [facility] Reviewer: [id number] Frida Ballard Notice Issued Date-Time: 11/18/2018 10:00 Notice Type: IM Discharge Notice Notice Delivered To: Patient Relationship to Patient: Hr Advisor Name: Delivery Method: HAND - Hand Delivered Rena Days: Prior Verbal Notification: Recipient Understood Notice: Yes Recipient Signature: Yes Med Rec Note Co-signed by Attending: Coverage Notice Comment: Last DP export: 11/18/18 12:15 p Patient Name: ANNIE PEÑA Page [id number] at 0858 All edits/amendments must be made on the electronic document DICTATION DATE: 11/20/18856 BOTTLE TESTER: TATA 11/20/1857 RPT#: [id number] DC DATE:11/19/18 STATUS: DIS IN [address] [place] [address] END OF REPORT
== END 2018-11-19 17:44 | disposition home or self-care (01) | DRG 689 ==
LOC: D.ER 08:16 → D.M2 10:57 → D.MS 10:57 → D.M2 11:22 → D.SDCHOLD 11-16 14:16 → D.M2 11-16 14:40
PROVIDERS: Emergency Medicine; ADMIT Internal Medicine Nephrology; ATTEND Internal Medicine Nephrology
DX: N39.0 Urinary tract infection, site not specified (principal); G93.41 Metabolic encephalopathy; E72.51 Non-ketotic hyperglycinemia; E87.1 Hypo-osmolality and hyponatremia; D35.00 Benign neoplasm of unspecified adrenal gland; E11.9 Type 2 diabetes mellitus without complications; M54.5 Low back pain

== ENCOUNTER → 2020-02-29 13:02 | Outpatient (CLI) | payer OTHER ==
[2018-11-16 13:43] VITALS: BMI 35.8
[~2020-02-29 13:02] MED LIST changes: +LEVOFLOXACIN500 MG PO; +TOPROL XL50 MG PO; +TRESIBA FL100 UNIT/1 SC
== END | disposition home or self-care (01) ==
LOC: D.CT 13:02
PROVIDERS: ATTEND Legal Medicine
DX: C83.03 Small cell B-cell lymphoma, intra-abdominal lymph nodes (principal)

== ENCOUNTER 2020-08-11 10:48 | Emergency (ER) | payer OTHER ==
[~2020-08-11] VITALS: Ht 157.5 cm; Wt 90.9 kg
[~2020-08-11 10:48] MED LIST changes: +AZITHROMYCIN500 MG PO; +BENADRYL50 MG PO; +CHROMIUM PICO200 MC1 PO; +DECADRON4 MG PO; +DULERA 100 MCG8.8 GM INH; +FEXOFENADINE HC60 MG PO; +GLUCOPHAGE500 MG PO; +HYDROCODON-ACE1 EA10 PO; +MUCINEX600 MG PO; +OMNICEF300 MG PO; +TESSALON PERLE100 MG PO; +VITAMIN B-1100 M1 PO; +VITAMIN D1000 UNI2 PO; +ZINC-220220 MG PO; +ZINC10 MG PO; +ZOCOR10 MG PO
[2020-08-11 10:51] VITALS: Ht 157.5 cm; Wt 90.9 kg
[2020-08-11 11:03] LABS: BASOPHILS 0.4 % (0-2); EOSINOPHILS 5.6 % (0-7); HEMATOCRIT 39.6 % (36.0-48.0); IMMATURE GRANULOCYTES 0.4 % (0-5); LYMPHOCYTE ABS# 2.14 10x3/uL (1.18-3.74); LYMPHOCYTES 42.7 % (15-50); MCH 29.2 pg (26.0-34.0); MCHC 32.8 g/dL (31.0-37.0); MONOCYTES 10.2 % (2-11); NEUTROPHIL ABS# 2.04 10x3/uL (1.56-6.13); NEUTROPHILS 40.7 % (40-80); PLATELET COUNT 292 10x3/uL (130-400); RBC 4.45 10x6/uL (4.00-5.40); RDW 13.6 % (11.5-14.5)
[2020-08-11 11:11] LABS: APTT 29.2 SECONDS (22.8-39.4); CALC OSMOLALITY 280 mosm/kg (275-300); CALCIUM 8.8 mg/dL (8.5-10.1); CARBON DIOXIDE 28.5 mmol/L (21.0-32.0); CHLORIDE - SERUM 106 mmol/L (98-107); CREATININE - SERUM 0.9 mg/dL (0.6-1.3); GLUCOSE 156 mg/dL (74-106); POTASSIUM - SERUM 3.6 mmol/L (3.5-5.1); SODIUM 140 mmol/L (136-145); UREA NITROGEN 10 mg/dL (7-18); eGFR NON AFRICAN AMERICAN 67 mL/min (90-120)
[2020-08-11 11:12] LABS: INR 0.99 (0.85-1.17); PROTIME 12.1 SECONDS (11.6-15.0)
[2020-08-11 11:37] LABS: ALBUMIN 3.4 g/dL (3.4-5.0); ALKALINE PHOSPHATASE 109 U/L (30-120); ALT (SGPT) 45 U/L (10-68); BILIRUBIN - TOTAL 0.32 mg/dL (0.2-1.3); CKMB 0.3 U/L (0.0-3.6); CREATINE KINASE 32 UL (21-215); PRO BNP 14 pg/mL (0-125); PROTEIN - SERUM 7.6 g/dL (6.4-8.2)
[2020-08-11 11:40] LABS: TROPONIN-I < 0.017 ng/mL (0.000-0.060)
[2020-08-11] MEDS ORDERED: PREDNISONE20 MG PO (11:59)
[2020-08-11 12:19] VITALS: BP 145/62
== END 2020-08-11 12:22 | disposition home or self-care (01) ==
LOC: D.ER 10:48
PROVIDERS: Emergency Medicine
DX: R06.00 Dyspnea, unspecified (principal); E11.65 Type 2 diabetes mellitus with hyperglycemia; E78.5 Hyperlipidemia, unspecified; E11.40 Type 2 diabetes mellitus with diabetic neuropathy, unspecified; J45.909 Unspecified asthma, uncomplicated; K21.9 Gastro-esophageal reflux disease without esophagitis; Z79.4 Long term (current) use of insulin

== ENCOUNTER → 2020-10-30 12:21 | Outpatient (CLI) | payer OTHER ==
[2020-08-11 10:51] VITALS: BMI 36.6
[~2020-10-30 12:21] MED LIST changes: +PREDNISONE20 MG PO
== END | disposition home or self-care (01) ==
LOC: D.CT 10-20 13:00
PROVIDERS: ATTEND Legal Medicine
DX: C83.03 Small cell B-cell lymphoma, intra-abdominal lymph nodes (principal)

== ENCOUNTER → 2020-11-20 12:38 | Outpatient (CLI) | payer OTHER ==
[2020-08-11 10:51] VITALS: BMI 36.6
== END | disposition home or self-care (01) ==
LOC: D.LAB 12:38
PROVIDERS: ATTEND Internal Medicine Pulmonary Disease
DX: Z11.52 Encounter for screening for COVID-19 (principal)